=== PATIENT | female | born 1955 ===

== ENCOUNTER 2021-09-04 16:27 | Emergency (ER) | payer SELFPAY ==
[~2021-09-04] VITALS: Ht 152 cm; Wt 63.0 kg
[2021-09-04] MEDS ORDERED: NS IV 1000 ML 1,000 ML IV SCH ×2 (17:15→17:30)
[2021-09-04] MEDS ORDERED: CEFEPIME INJECTION 1,000 MG in NS (IVPB) 50 ML IV ONE (17:15)
[2021-09-04] MEDS ORDERED: NS IV 1000 ML 2,000 ML ONE (17:17)
[2021-09-04 17:31] LABS: BASOPHILS # (AUTO) 0.1 10^3/uL (0.0-0.1); BASOPHILS % (AUTO) 0 % (0-10); EOSINOPHILS # (AUTO) 0.1 10^3/uL (0.0-0.3); EOSINOPHILS % (AUTO) 0 % (0-10); HEMATOCRIT 43 % (35-52); HEMOGLOBIN 14.1 g/dL (11.5-16.0); LYMPHOCYTES # (AUTO) 0.9 10^3/uL (1.0-4.0); LYMPHOCYTES % (AUTO) 3 % (12-44); MEAN CORPUSCULAR HEMOGLOBIN 30 pg (25-34); MEAN CORPUSCULAR HGB CONC 33 g/dL (32-36); MEAN CORPUSCULAR VOLUME 90 fL (80-99); MONOCYTES # (AUTO) 0.8 10^3/uL (0.0-1.0); MONOCYTES % (AUTO) 3 % (0-12); NEUTROPHILS # (AUTO) 23.1 10^3/uL (1.8-7.8); NEUTROPHILS % (AUTO) 86 % (42-75); PLATELET COUNT 153 10^3/uL (130-400)
[2021-09-04] MEDS: VANCOMYCIN INJECTION 750 MG in NS (IVPB) 250 ML IV SCH ×2 (17:33→18:29)
[2021-09-04 17:34] LABS: POTASSIUM 4.4 MMOL/L (3.6-5.0)
[2021-09-04 17:35] LABS: CALCIUM 8.2 MG/DL (8.5-10.1)
[2021-09-04 17:36] LABS: CLARITY,URINE CLOUDY; COLOR,URINE BROWN; GLUCOSE, URINE (UA) 3+ (NEGATIVE); KETONES,URINE TRACE (NEGATIVE); LEUKOCYTE ESTERASE ,URINE 2+ (NEGATIVE); NITRITE,URINE POSITIVE (NEGATIVE); PH,URINE 5.5 (5-9); PROTEIN,URINE 2+ (NEGATIVE)
[2021-09-04 17:36] LABS: TOTAL PROTEIN 6.1 GM/DL (6.4-8.2)
[2021-09-04 17:38] LABS: BILIRUBIN,TOTAL 0.7 MG/DL (0.1-1.0)
[2021-09-04 17:40] LABS: CREATININE SERUM 2.95 MG/DL (0.60-1.30)
[2021-09-04] MEDS ORDERED: fentaNYL INJ 100 MCG/2 ML AMP ONE ×2 (17:43→18:19)
[2021-09-04 17:47] LABS: INR 1.3 (0.8-1.4); PROTHROMBIN TIME PATIENT 16.8 SEC (12.2-14.7)
[2021-09-04] MEDS ORDERED: ASPIRIN 81 MG CHEW (CHILDREN'S ASA) ONE (17:47)
[2021-09-04] MEDS ORDERED: NS IV 1000 ML 1,000 ML IV STA (17:47)
[2021-09-04 17:57] LABS: BAND NEUTROPHILS 21 %; BASOPHILS % (MANUAL) 0 %; EOSINOPHILS % (MANUAL) 0 %; LYMPHOCYTES % (MANUAL) 3 %; METAMYELOCYTES % 10 %; MONOCYTES % (MANUAL) 5 %; NEUTROPHILS % (MANUAL) 61 %; RBC MORPH NORMAL
[2021-09-04 17:59] LABS: BILIRUBIN,URINE 1+ (NEGATIVE)
[2021-09-04] MEDS ORDERED: ASPIRIN 81 MG CHEW (CHILDREN'S ASA) PO ONE (18:00)
[2021-09-04] MEDS ORDERED: fentaNYL INJ 100 MCG/2 ML AMP IVP ONE ×2 (18:00→18:30)
[2021-09-04 18:01] LABS: AMORPHOUS SEDIMENT,UR LARGE AMOR URATES /LPF; BACTERIA,URINE LARGE /HPF; RBC,URINE 25-50 /HPF; WBC,URINE 50-100 /HPF
--- NOTE | 2021-09-04 18:08 | Diagnostic Imaging Report ---
INDICATION: Shortness of air. COMPARISON: None available. TECHNIQUE: Single radiograph of the chest dated September 04, 2021. FINDINGS: The cardiac silhouette is mildly enlarged. Central pulmonary vascular congestion is present. Minimal prominence of the pulmonary interstitium is noted. No additional focal pulmonary opacity. No large-volume pleural effusion. No pneumothorax. No acute osseous abnormality. Surgical clips in the right upper quadrant of the abdomen. IMPRESSION: 1. Mild cardiomegaly with central pulmonary vascular congestion present. 2. Low lung volumes with prominence of the pulmonary interstitium which may relate to minimal interstitial edema or less likely interstitial infiltrate. No significant pleural effusion. Dictated by: Dictated on workstation # [id number]
--- NOTE | 2021-09-04 18:11 | Diagnostic Imaging Report ---
PROCEDURE: CT abdomen and pelvis without contrast. TECHNIQUE: Multiple contiguous axial images were obtained through the abdomen and pelvis without the use of intravenous contrast. Auto Exposure Controls were utilized during the CT exam to meet ALARA standards for radiation dose reduction. INDICATION: Vomiting. Right-sided abdominal pain. COMPARISON: None. FINDINGS: The heart is unremarkable. Intralobular septal thickening is noted in the included lung bases. There is hepatic steatosis. The gallbladder is surgically absent. A Archibald catheter is in place with a decompressed urinary bladder. Air is seen within the urinary bladder and within the right collecting system. Mild perinephric fat stranding is seen, bilaterally. No obstructing calculi or hydronephrosis. The spleen, pancreas and adrenal glands have a normal appearance. There is no pathologically enlarged mesenteric or retroperitoneal adenopathy. The bowel loops are nondilated. Diverticula are seen in the descending and sigmoid colon. There is no free fluid or free air. No acute osseous abnormality. There is no free air, loculated collection or adenopathy in the pelvis. IMPRESSION: 1. Air within the collecting system on the right. This may have been introduced from the Archibald catheter although emphysematous pyelonephritis or emphysematous pyelitis could also have this appearance. Recommend correlation with patient history and symptoms and follow-up as indicated. 2. Hepatic steatosis. 3. Diverticula in the descending and sigmoid colon without evidence of acute diverticulitis. 4. Intralobular septal thickening in the lung bases. This can be seen with edema, infection and/or chronic fibrotic changes. Dictated by: Dictated on workstation # [id number]
--- NOTE | 2021-09-04 18:14 | ED Abdominal Pain ---
General Chief Complaint: General Problems/Pain Stated Complaint: WEAKNESS/LETHARGIC Nursing Triage Note: c\\o being sick for 3 days, started having vomiting and right sided abdominal pain. patient family state she has been lethargic at home and not wanting to talk. patient answers all questions via macedonian interperter and appears to be alert and oriented x3. Source of Information: Patient, Family, Other Exam Limitations: Language Barrier (BABAK MEJIA) History of Present Illness Date Seen by Provider: Sep 04, 2021 Time Seen by Provider: 16:40 Initial Comments Patient to the ER by private conveyance with her granddaughter who speaks Chinese and her significant other. She and her significant other do not speak Chinese. Language tablet was used. She has a chief complaint of 3 days of right upper quadrant abdominal pain that is severe difficulty breathing feeling short of breath and occasional cough sometimes productive of white phlegm. She has not had a fever but she has had chills. She has a history of diabetes on metformin but not insulin. She is known to [facility] and was transferred here from there by private vehicle. She is not having any nausea or vomiting ri ght now. She has a history of kidney stones. Patient has no history of heart disease. Started having complaints of chest pain substernal about an hour after getting here. Family remarks that she was very difficult to get up out of bed and was weight and they had to lift her and carry her to the clinic. No known history of DKA. (BABAK MEJIA) Allergies and Home Medications Allergies Coded Allergies: No Known Drug Allergies (Unverified , 09/04/21) Patient Home Medication List Home Medication List Reviewed: Yes (BABAK MEJIA) Review of Systems Review of Systems Constitutional: chills; No fever EENTM: No Blurred Vision, No Double Vision Respiratory: Cough, Shortness of Air Cardiovascular: Chest Pain; Denies Lightheadedness Gastrointestinal: See HPI, Abdomen Distended, Abdominal Pain; Denies Constipated, Denies Diarrhea Genitourinary: Denies Burning, Denies Discharge Musculoskeletal: No back pain, No joint pain (BABAK MEJIA) All Other Systems Reviewed Negative Unless Noted: Yes (BABAK MEJIA) Past Fekleix-Rfwoht-Kdlvnd Hx Patient Social History Tobacco Use?: No Use of E-Cig and/or Vaping dev: No Substance use?: No (BABAK MEJIA) Physical Exam Vital Signs Vital Signs - First Documented 09/04/21 16:36 Temp 37.8 Pulse 97 Resp 20 B/P (MAP) 80/49 (59) Pulse Ox 95 O2 Delivery Room Air O2 Flow Rate 3.00 (DARLINE MOON DO) Vital Signs Capillary Refill : Less Than 3 Seconds (BABAK MEJIA) Height/Weight/BMI Height: '" Weight: lbs. oz. kg; 27.00 BMI Method: General Appearance: severe distress, obese HEENT: PERRL/EOMI, pharynx normal Neck: full range of motion, supple, normal inspection Respiratory: lungs clear, normal breath sounds, no respiratory distress, no accessory muscle use Cardiovascular: normal peripheral pulses, regular rate, rhythm Peripheral Pulses: 2+ Radial Pulses (R), 2+ Radial Pulses (L) Gastrointestinal: abnormal bowel sounds (Absent), distended, tenderness (Especially in the right upper quadrant without Dean sign) Extremities: normal range of motion, normal inspection, normal capillary refill Neurologic/Psychiatric: alert, oriented x 3, other (Anxious affect) Skin: normal color, warm/dry (BABAK MEJIA) Focused Exam Sepsis Stage: Septic Shock Possible Source: Genitouriary (BABAK MEJIA) Lactate Level 09/04/21 19:00: Lactic Acid Level 6.31*H 09/04/21 21:15: Lactic Acid Level 3.73*H 09/04/21 23:09: Lactic Acid Level 4.29*H (DARLINE MOON DO) Time of Focused Exam: 20:17 Respiratory: Crackles, Decreased Breath Sounds, Respiratory Distress (on 8l Oximask) Cardiovascular: Regular Rate, Rhythm, No Edema, Normal Peripheral Pulses Capillary Refill: Less Than 3 Seconds Peripheral Pulses: 2+ Radial Pulses (R), 2+ Radial Pulses (L) Skin: normal color, warm/dry (BABAK MEJIA) Lactic Acid Level Laboratory Tests Test 09/04/21 16:45 09/04/21 19:00 09/04/21 21:15 09/04/21 23:09 Lactic Acid Level 9.22 MMOL/L (0.50-2.00) *H 6.31 MMOL/L (0.50-2.00) *H 3.73 MMOL/L (0.50-2.00) *H 4.29 MMOL/L (0.50-2.00) *H (DARLINE MOON Bianca IRELAND) Within 3hrs of presentation: Admin fluids, Admin ABX, Blood cultures prior to ABX's, Focus exam, Lactate level (BABAK MEJIA) Procedures/Interventions Lumen: triple Central Line Procedure: betadine prep (Chlorhexidine prep), sterile drapes applied, sterile dressing applied Position: internal jugular (R) Anesthesia: Lidocaine Volume Anesthetic (ccs): 3 Complications: none Post Position: sutured, good blood return, position confirmed w/ CXR Risks, benefits and alternatives were discussed with the patient and the patient consented to the procedure. The patient was positioned in the usual format and using the usual sterile garments and drapes the patient was dressed out. The skin was thoroughly cleaned with the supplied chlorhexidine prep. After the prep had dried a sterile drape was placed. The 16 cm 7 Vietnamese triple-lumen catheter was flushed with sterile saline. We used ultrasound guidance to pass the introducer needle into the right internal jugular without difficulty. A guidewire was placed easily without difficulty. No ectopy was seen on the monitor. The supplied 11 blade scalpel was used to make a 2 mm incision at the inferior portion of the introducer needle. The introducer needle was replaced with the dilator. The dilator was taken out and the patient had the central lumen of the triple lumen catheter threaded over the guidewire and placed at 12.5 cm. The guidewire was removed and the triple-lumen catheter was stitched in place using the supplied braided stitch at 2 different points. The catheter withdrew blood and flushed easily. A sterile dressing was placed over the catheter. The patient tolerated the procedure well. A chest x-ray was obtained that demonstrated no pneumothorax and a new interval central catheter over the shadow of the right internal jugular down the superior vena cava and terminating just proximal to the right atria. (BABAK MEJIA) Progress/Results/Core Measures Results/Orders Lab Results Laboratory Tests Test 09/04/21 16:45 09/04/21 17:12 09/04/21 17:24 09/04/21 17:25 Range/Units White Blood Count 27.0 H 4.3-11.0 10^3/uL Red Blood Count 4.75 3.80-5.11 10^6/uL Hemoglobin 14.1 11.5-16.0 g/dL Hematocrit 43 35-52 % Mean Corpuscular Volume 90 80-99 fL Mean Corpuscular Hemoglobin 30 25-34 pg Mean Corpuscular Hemoglobin Concent 33 32-36 g/dL Red Cell Distribution Width 13.3 10.0-14.5 % Platelet Count 153 130-400 10^3/uL Mean Platelet Volume 12.0 9.0-12.2 fL Immature Granulocyte % (Auto) 7 % Neutrophils (%) (Auto) 86 H 42-75 % Lymphocytes (%) (Auto) 3 L 12-44 % Monocytes (%) (Auto) 3 0-12 % Eosinophils (%) (Auto) 0 0-10 % Basophils (%) (Auto) 0 0-10 % Neutrophils # (Auto) 23.1 H 1.8-7.8 10^3/uL Lymphocytes # (Auto) 0.9 L 1.0-4.0 10^3/uL Monocytes # (Auto) 0.8 0.0-1.0 10^3/uL Eosinophils # (Auto) 0.1 0.0-0.3 10^3/uL Basophils # (Auto) 0.1 0.0-0.1 10^3/uL Immature Granulocyte # (Auto) 1.9 H 0.0-0.1 10^3/uL Neutrophils % (Manual) 61 % Lymphocytes % (Manual) 3 % Monocytes % (Manual) 5 % Eosinophils % (Manual) 0 % Basophils % (Manual) 0 % Metamyelocytes % 10 % Band Neutrophils 21 % Blood Morphology Comment NORMAL Prothrombin Time 16.8 H 12.2-14.7 SEC INR Comment 1.3 0.8-1.4 Activated Partial Thromboplast Time 41 H 24-35 SEC Sodium Level 134 L 135-145 MMOL/L Potassium Level 4.4 3.6-5.0 MMOL/L Chloride Level 98 98-107 MMOL/L Carbon Dioxide Level 14 L 21-32 MMOL/L Anion Gap 22 H 5-14 MMOL/L Blood Urea Nitrogen 38 H 7-18 MG/DL Creatinine 2.95 H 0.60-1.30 MG/DL Estimat Glomerular Filtration Rate 17 BUN/Creatinine Ratio 13 Glucose Level 246 H 70-105 MG/DL Lactic Acid Level 9.22 *H 0.50-2.00 MMOL/L Calcium Level 8.2 L 8.5-10.1 MG/DL Corrected Calcium 9.0 8.5-10.1 MG/DL Total Bilirubin 0.7 0.1-1.0 MG/DL Aspartate Amino Transf (AST/SGOT) 66 H 5-34 U/L Alanine Aminotransferase (ALT/SGPT) 88 H 0-55 U/L Alkaline Phosphatase 147 H 40-136 U/L Total Protein 6.1 L 6.4-8.2 GM/DL Albumin 3.0 L 3.2-4.5 GM/DL Troponin I 0.131 H <0.028 NG/ML B-Type Natriuretic Peptide 931.7 H <100.0 PG/ML Beta-Hydroxybutyrate (Chem panel) 0.32 H 0.00-0.27 MMOL/L Glucometer 232 H 70-110 MG/DL Urine Color BROWN H Urine Clarity CLOUDY Urine pH 5.5 5-9 Urine Specific Kirksey 1.010 L 1.016-1.022 Urine Protein 2+ H NEGATIVE Urine Glucose (UA) 3+ H NEGATIVE Urine Ketones TRACE H NEGATIVE Urine Nitrite POSITIVE H NEGATIVE Urine Bilirubin 1+ H NEGATIVE Urine Urobilinogen 0.2 < = 1.0 MG/DL Urine Leukocyte Esterase 2+ H NEGATIVE Urine RBC (Auto) 3+ H NEGATIVE Urine RBC 25-50 H /HPF Urine WBC 50-100 H /HPF Urine Squamous Epithelial Cells NONE /HPF Urine Crystals NONE /LPF Urine Amorphous Sediment LARGE JACQUELIN URATES H /LPF Urine Bacteria LARGE H /HPF Urine Casts NONE /LPF Urine Mucus NEGATIVE /LPF Urine Culture Indicated CULTURE PENDING Test 09/04/21 19:00 09/04/21 20:25 09/04/21 21:15 09/04/21 23:09 Range/Units Lactic Acid Level 6.31 *H 3.73 *H 4.29 *H 0.50-2.00 MMOL/L Blood Gas Puncture Site LEFT RADIAL Blood Gas Patient Temperature 38 Arterial Blood pH 7.21 *L 7.37-7.43 Arterial Blood Partial Pressure CO2 45 35-45 MMHG Arterial Blood Partial Pressure O2 90 79-93 MMHG Arterial Blood HCO3 17 *L 23-27 MMOL/L Arterial Blood Total CO2 18.6 L 21.0-31.0 MMOL/L Arterial Blood Oxygen Saturation 94 94-100 % Arterial Blood Base Excess -8.9 L -2.5-2.5 MMOL/L Heriberto Test POSITIVE Blood Gas Ventilator Setting NO Blood Gas Inspired Oxygen 12 (DARLINE MOON DO) My Orders Orders - DARLINE MOON DO Furosemide Injection (Lasix Injection) (09/04/21 20:30) Methylprednisolone Sod Succ (Solu-Medrol (09/04/21 20:30) Albuterol/Ipra Inhalation Soln (Duoneb I (09/04/21 20:30) Dexamethasone Injection (Decadron Injec (09/04/21 20:30) Rt Request For Service (09/04/21 20:21) Svn Small Volume Nebulizer (09/04/21 20:21) Arterial Blood Gas (09/04/21 20:25) Sodium Bicarbonate 8.4% Syr (Sodium Bica (09/04/21 21:45) Cefepime Injection (Maxipime Injection) (09/05/21 00:00) (DARLINE MOON DO) Medications Given in ED Current Medications Medications Dose Ordered Sig/Michelle Route Start Time Stop Time Status Last Admin Dose Admin Aspirin 324 mg ONCE ONCE PO 09/04/21 18:00 09/04/21 18:01 DC 09/04/21 17:47 324 MG Cefepime HCl 1000 mg/Sodium Chloride 50 ml @ 100 mls/hr ONCE ONCE IV 09/04/21 17:15 09/04/21 17:44 DC 09/04/21 17:32 100 MLS/HR Cefepime HCl 1000 mg/Sodium Chloride 50 ml @ 100 mls/hr ONCE ONCE IV 09/05/21 00:00 09/05/21 00:29 DC 09/05/21 00:05 100 MLS/HR Fentanyl Citrate 25 mcg ONCE ONCE IVP 09/04/21 18:00 09/04/21 18:01 DC 09/04/21 17:45 25 MCG Fentanyl Citrate 50 mcg ONCE ONCE IVP 09/04/21 18:30 09/04/21 18:31 DC 09/04/21 18:25 50 MCG Furosemide 80 mg ONCE ONCE IVP 09/04/21 20:30 09/04/21 20:31 DC 09/04/21 20:31 80 MG Methylprednisolone Sodium Succinate 125 mg ONCE ONCE IVP 09/04/21 20:30 09/04/21 20:31 DC 09/04/21 20:31 125 MG Sodium Bicarbonate 100 meq ONCE ONCE IV 09/04/21 21:45 09/04/21 21:46 DC 09/04/21 21:59 100 MEQ Sodium Chloride 1,000 ml @ 250 mls/hr Q4H ONCE IV 09/04/21 19:00 09/04/21 22:59 DC 09/04/21 18:37 250 MLS/HR (LILYDARLINE Bianca IRELAND) Vital Signs/I&O 09/04/21 09/04/21 09/04/21 09/04/21 16:36 16:36 20:05 20:15 Temp 37.8 Pulse 97 112 93 Resp 20 B/P (MAP) 80/49 (59) 98/76 106/88 Pulse Ox 95 94 O2 Delivery Room Air Nasal Cannula O2 Flow Rate 3.00 09/04/21 09/05/21 20:19 00:13 Pulse 111 92 Resp 36 20 B/P (MAP) 105/64 119/89 Pulse Ox 90 98 O2 Delivery OxyMask Room Air O2 Flow Rate 10.00 09/04/21 23:59 Intake Total 3300 ml Balance 3300 ml (LUC MOONA Bianca DO) Blood Pressure Mean: 59 Progress Progress Note #1: Time: 18:13 Progress Note The patient is writhing and in severe pain. She is however presenting with a very low blood pressure of 60/40 so we initiated 2 L of fluid. 1/3 L was added but her blood pressure had returned to 100 systolic by that time. Broad- spectrum antibiotics and a CT without IV contrast of the abdomen pelvis were ordered and obtained demonstrating air in the urinary tract on the right side concerning for entericvesicular fistula versus infection. Urinalysis was consistent with significant infection. Blood cultures and lactate were obtained. Patient's blood pressure is presently 115/68 working on her third liter of fluids. We were able to give her 25 mcg of fentanyl for pain and will readdress her pain shortly. We do not have urology available right now. Will wait for radiology to review the imaging and then review with our local general surgeon. ASa Progress Note #2: Time: 20:18 Progress Note Suspect the patient was gotten too many IV fluids and is perhaps going into fluid overload. She has some congestion seen on chest x-ray after central catheter. Plan to hold her IV fluids and entertain Lasix and/or CPAP while using pressors to maintain a good blood pressure. Patient states her pain is tolerable just short of breath (BABAK MEJIA) Progress Note : Progress Note 1999--ASSUMED CARE OF PT FROM DR. MEJIA AT SHIFT CHANGE. HAVE RECEIVED BED ASSIGNMENT FROM . ATTEMPTING TO ARRANGE FOR GROUND TRANSPORT NO AIR SERV ICES ARE AVAILABLE DUE TO WEATHER. VITALS ARE STABLE AT THIS TIME. PT IS CURRENTLY ON LEVOPHED DRIP FOR PERSISTENT HYPOTENSION. PT RECEIVING IV ANTIBIOTICS. 2024--PT IS WHEEZING AND HAS A LITTLE ORTHOPNEA, O2 SATS 90%. PLACED ON OXIMASK AND O2 SATS UP TO MID 90'S RT FOR NEB TREATMENT AND ABG'S GIVEN LASIX DUE TO EVIDENCE OF CHF ON XRAY, ALSO GAVE SOLU-MEDROL. IV FLUIDS SLOWED AND LEVOPHED INCREASED DUE TO BP IN LOW 90'S SYSTOLIC. SYMPTOMS OVER ALL IMPROVED WITH THE ABOVE MEASURES 2099--RN HAS BEEN ON PHONE WITH LOCAL EMS AGAIN. THEY WILL NOT HAVE A CREW AVAILABLE UNTIL MIDNIGHT AND THEY REQUESTED THAT WE CALL BACK AT THAT TIME. 2199--PT REMAINS STABLE. O2 SATS IN MID 90'S ON OXIMASK, LUNGS WITH IMPROVED AERATION, AND NO LONGER WHEEZING OR ORTHOPNEIC. BP STABLE IN UPPER 90'S TO 100 SYSTOLIC. PT HAS RECEIVED A TOTAL OF 4 LITERS OF FLUID AND HAS HAD 700 CC URINE OUT. URINE IS GETTING CLEARER/PALER AT THIS TIME PT DOES NOT HAVE ANY COMPLAINTS AT THIS TIME. 0001--PT REMAINS STABLE, HR DOWN TO 90'S, BP UP TO 110'S SYSTOLIC, O2 SATS 95- 96% ON OXIMASK. RESPIRATIONS EVEN AND UNLABORED. URINE OUTPUT NOW AT APPROXIMATELY 1000 ML. STILL WAITING FOR TRANSPORTATION 5--RN IS ON PHONE WITH [facility], THEY WILL BE SENDING A TRANSFER CREW OUT SHORTLY. 005--EMS HERE FOR TRANSPORT. BP 121/77, HR 89, O2 SAT 96% ON 10 L OXIMASK. (DARLINE MOON DO) Initial ECG Impression Date: Sep 04, 2021 Initial ECG Impression Time: 17:43 Initial ECG Rate: 106 Initial ECG Rhythm: S.Tach Initial ECG Intervals: Normal Initial ECG Impression: Normal Comment Sinus tachycardia without clinically relevant ST elevation or depression. (BABAK MEJIA) Diagnostic Imaging Diagonstic Imaging: Xray Plain Films/CT/US/NM/MRI: chest Comments [facility] [place] NAME: JOSE MARTIN SMITH [facility] REC#: [id number] PT STATUS: REG ER : 1955 PHYSICIAN: BABAK MEJIA MD ADMIT DATE: 09/04/21/ER Signed Date of Exam:09/04/21 CHEST 1 VIEW, AP/PA ONLY INDICATION: Shortness of air. COMPARISON: None available. TECHNIQUE: Single radiograph of the chest dated September 04, 2021. FINDINGS: The cardiac silhouette is mildly enlarged. Central pulmonary vascular congestion is present. Minimal prominence of the pulmonary interstitium is noted. No additional focal pulmonary opacity. No large-volume pleural effusion. No pneumothorax. No acute osseous abnormality. Surgical clips in the right upper quadrant of the abdomen. IMPRESSION: 1. Mild cardiomegaly with central pulmonary vascular congestion present. 2. Low lung volumes with prominence of the pulmonary interstitium which may relate to minimal interstitial edema or less likely interstitial infiltrate. No significant pleural effusion. Dictated by: Dictated on workstation # [id number] Dict: 09/04/211802 Trans: 09/04/211811 [facility] [id number] Interpreted by: JOCELYNN MCKEON MD Electronically signed by: JOCELYNN MCKEON MD 09/04/211811 Reviewed: Reviewed by Il Diagonstic Imaging: CT Plain Films/CT/US/NM/MRI: abdomen, pelvis Comments [facility] [place] NAME: JOSE MARTIN SMITH [facility] REC#: [id number] PT STATUS: REG ER : 1955 PHYSICIAN: BABAK MEJIA MD ADMIT DATE: 09/04/21/ER Signed Date of Exam:09/04/21 CT ABDOMEN/PELVIS WO PROCEDURE: CT abdomen and pelvis without contrast. TECHNIQUE: Multiple contiguous axial images were obtained through the abdomen and pelvis without the use of intravenous contrast. Auto Exposure Controls were utilized during the CT exam to meet ALARA standards for radiation dose reduction. INDICATION: Vomiting. Right-sided abdominal pain. COMPARISON: None. FINDINGS: The heart is unremarkable. Intralobular septal thickening is noted in the included lung bases. There is hepatic steatosis. The gallbladder is surgically absent. A Archibald catheter is in place with a decompressed urinary bladder. Air is seen within the urinary bladder and within the right collecting system. Mild perinephric fat stranding is seen, bilaterally. No obstructing calculi or hydronephrosis. The spleen, pancreas and adrenal glands have a normal appearance. There is no pathologically enlarged mesenteric or retroperitoneal adenopathy. The bowel loops are nondilated. Diverticula are seen in the descending and sigmoid colon. There is no free fluid or free air. No acute osseous abnormality. There is no free air, loculated collection or adenopathy in the pelvis. IMPRESSION: 1. Air within the collecting system on the right. This may have been introduced from the Archibald catheter although emphysematous pyelonephritis or emphysematous pyelitis could also have this appearance. Recommend correlation with patient history and symptoms and follow-up as indicated. 2. Hepatic steatosis. 3. Diverticula in the descending and sigmoid colon without evidence of acute diverticulitis. 4. Intralobular septal thickening in the lung bases. This can be seen with edema, infection and/or chronic fibrotic changes. Dictated by: Dictated on workstation # [id number] Dict: 09/04/21 1800 Trans: 09/04/211810 [facility] [id number] Interpreted by: MARÍA ELENA FLETCHER DO Electronically signed by: MARÍA EELNA FLETCHER DO 09/04/211810 Reviewed: Reviewed by Il Diagonstic Imaging: Xray Plain Films/CT/US/NM/MRI: chest Comments No evidence of pneumothorax. Central line and overlying the shadow of the superior vena cava and terminating just above the right atria. [facility] [place] NAME: JOSE MARTIN SMITH [facility] REC#: [id number] PT STATUS: REG ER : 1955 PHYSICIAN: BABAK MEJIA MD ADMIT DATE: 09/04/21/ER Signed Date of Exam:09/04/21 CHEST 1 VIEW, AP/PA ONLY INDICATION: Post central line placement. COMPARISON: 09/04/2021 TECHNIQUE: Single radiograph of the chest dated September 04, 2021 at 1950 hours. FINDINGS: Interval placement of a right IJ central venous catheter with the distal tip overlying the expected location of the cavoatrial junction. No pneumothorax. Cardiac silhouette remains enlarged. Central pulmonary vascular congestion. Prominence of the pulmonary interstitium. No large-volume pleural effusion. No pneumothorax. Osseous structures appear stable. IMPRESSION: 1. Interval placement of right IJ central venous catheter with the distal tip overlying the expected location of the cavoatrial junction without pneumothorax. 2. Persistent cardiomegaly and central pulmonary vascular congestion. 3. Stable prominence of the pulmonary interstitium, related to interstitial edema versus interstitial infiltrate. Dictated by: Dictated on workstation # [id number] Dict: 09/04/211956 Trans: 09/04/212008 [facility] [id number] Interpreted by: JOCELYNN MCKEON MD Electronically signed by: JOCELYNN MCKEON MD 09/04/212008 Reviewed: Reviewed by Me (BABAK MEJIA) Consults : Consulting Physician: PATRICIA ZAVALETA DO Consults Notes Dr. Zavaleta, general surgery agrees with the radiologist read that a gas-forming bacteria is highly likely and ID and urology would be beneficial to this patient. We have neither are available at this time. Recommends transfer. (BABAK MEJIA) Transfer of Care Time: 20:20 Care transferred to: Dr. Moon (BABAK MEJIA) Critical Care Note Critical Care Start Time: 16:40 Stop Time: 20:00 Total Time (minutes) 200m Progress I attest to 200 minutes of critical care time outside of procedures to work on care of this critically ill patient, speak with general surgery, other ancillary services including respiratory therapy, care of the patient transferred. Also working on transfer to higher level of care and working with their intensivists to help manage the patient. (BAABK MEJIA) Departure Impression Primary Impression: Pyelonephritis Additional Impressions: Pneumatouria Septic shock Metabolic acidosis Disposition: 02 XFER SHT-TRM HOSP ([facility]) Condition: Stable Transfer Transfer Reason: Exceeds level of care (No urology or ID) Time Spoke to Accepting Phy: 19:00 Transfer Progress Notes 1820: Left voicemail with [facility]. 182: [facility] and [facility]: [facility] is over 48 hours out before they will have admissions available. [facility] is almost 24 hours before they will be able to accept admissions. 182: [facility]: Spoke with triage nursing and they will call us back with MICU drag out man. 1899: [facility] called us back and give us the accepting physician of Mavis Pollock. 2020: We have a bed number. All the fixed wing and rotary ambulances are unavailable to come until at least midnight due to weather. [facility] informs us that they are unavailable until after 1 AM. We have called all of the local surrounding EMS and they have declined transport. We have put the patient in a hospital bed in the ER for comfort and will continue to work on transport solution. Transfer Facility: [facility] Method of Transfer: EMS (BABAK MEJIA) Departure-Patient Inst. Referrals: [facility] (PCP/Family) Primary Care Physician BABAK MEJIA Sep 04, 2021 18:14 DARLINE MOON DO Sep 04, 2021 20:09
[2021-09-04] MEDS ORDERED: NS IV 1000 ML 1,000 ML ONE (18:37)
[2021-09-04] MEDS ORDERED: NOREPINEPHRINE 8 MG/250 ML 0 ML IV ONE (18:38)
[2021-09-04] MEDS ORDERED: NOREPINEPHRINE 8 MG/250 ML 250 ML IV ONE (18:43)
[2021-09-04] MEDS ORDERED: NS IV 1000 ML 1,000 ML IV ONE (19:00)
[2021-09-04] MEDS ORDERED: NOREPINEPHRINE 8 MG/250 ML 250 ML IV SCH (19:00)
--- NOTE | 2021-09-04 20:03 | Diagnostic Imaging Report ---
INDICATION: Post central line placement. COMPARISON: 09/04/2021 TECHNIQUE: Single radiograph of the chest dated September 04, 2021 at 1950 hours. FINDINGS: Interval placement of a right IJ central venous catheter with the distal tip overlying the expected location of the cavoatrial junction. No pneumothorax. Cardiac silhouette remains enlarged. Central pulmonary vascular congestion. Prominence of the pulmonary interstitium. No large-volume pleural effusion. No pneumothorax. Osseous structures appear stable. IMPRESSION: 1. Interval placement of right IJ central venous catheter with the distal tip overlying the expected location of the cavoatrial junction without pneumothorax. 2. Persistent cardiomegaly and central pulmonary vascular congestion. 3. Stable prominence of the pulmonary interstitium, related to interstitial edema versus interstitial infiltrate. Dictated by: Dictated on workstation # [id number]
[2021-09-04] MEDS ORDERED: FUROSEMIDE 40 MG/4 ML INJ (LASIX) IVP ONE (20:30)
[2021-09-04] MEDS ORDERED: RT-ALBUTEROL/IPRATROPIUM 3 ML (DUONEB) VIAL INH ONE (20:30)
[2021-09-04] MEDS ORDERED: methylPREDNISolone 125 MG (Solu-MEDROL) VIAL IVP ONE (20:30)
[2021-09-04 21:43] LABS: ABG BASE EXCESS -8.9 MMOL/L (-2.5-2.5); ABG OXYGEN SATURATION 94 % (94-100); ABG PCO2 45 MMHG (35-45); ABG PO2 90 MMHG (79-93); ABG TCO2 18.6 MMOL/L (21.0-31.0)
[2021-09-04 21:44] LABS: ABG PH 7.21 (7.37-7.43); ALLENS TEST POSITIVE; INSPIRED O2 12; PATIENT TEMP 38; VENTILATOR NO
[2021-09-04] MEDS ORDERED: SODIUM BICARB 8.4% 50 MEQ/50 ML (ABBOTT) SYR IV ONE (21:45)
[2021-09-05] MEDS ORDERED: CEFEPIME INJECTION 1,000 MG in NS (IVPB) 50 ML IV ONE ×2
[2021-09-05 01:00] VITALS: BP 129/91
== END 2021-09-05 01:22 | disposition short-term general hospital (02) ==
LOC: EDUNIT# 16:27 → ER 16:29
DX: N12 Tubulo-interstitial nephritis, not specified as acute or chronic (principal); E87.2 Acidosis; R39.89 Other symptoms and signs involving the genitourinary system; R65.21 Severe sepsis with septic shock; E66.9 Obesity, unspecified; Z68.27 Body mass index [BMI] 27.0-27.9, adult
CPT/HCPCS: 36415; 51702; 71045; 74176; 80053; 81000; 82010; 82805; 82947; 83605; 83880; 84484; 85007; 85027; 85610; 85730; 87040; 87077; 87088; 93005

== ENCOUNTER → 2021-11-25 | Outpatient (CLI) | payer OTHER ==
--- NOTE | 2021-11-25 16:14 | Diagnostic Imaging Report ---
PROCEDURE: MR imaging of the brain without contrast. TECHNIQUE: Multiplanar, multisequence MR imaging of the brain was performed without contrast. INDICATION: Right-sided facial weakness. COMPARISON: None. FINDINGS: Mild generalized volume loss. Mild nonspecific T2 hyperintensities in the supratentorial white matter. No restricted water diffusion. No hemosiderin deposition or evidence of intracranial hemorrhage. Normal morphology including the major midline structures, sella, posterior fossa and cerebellar pontine angle. Normal intracranial flow voids. No hydrocephalus or extra-axial fluid collections. The orbits are negative. Paranasal sinuses and mastoids are clear. Normal bone marrow signal. IMPRESSION: Age-appropriate MRI of the brain without contrast. No acute intracranial MRI findings. No evidence of a infarction or hemorrhage. Dictated by: Dictated on workstation # [id number]
== END ==
LOC: RAD 14:00
PROVIDERS: ATTEND Family Medicine
DX: R29.810 Facial weakness (principal)
CPT/HCPCS: 70551

== ENCOUNTER → 2022-02-10 | Outpatient (CLI) | payer OTHER | LOC: CARD 07:59 | PROVIDERS: ATTEND Family Medicine | DX: R07.89 Other chest pain (principal) | CPT/HCPCS: 93306 ==

== ENCOUNTER → 2022-02-22 | Outpatient (CLI) | payer OTHER ==
[~2022-02-22] MED LIST: REGADENOSON 0.4 MG/5 ML SYR (LEXISCAN) IV ONE
[2022-02-22] MEDS: CATHETER FLUSH 10 ML SYR IVP PRN ×2 (08:16→09:59)
[2022-02-22 09:58] VITALS: BP 186/101
--- NOTE | 2022-02-22 12:19 | Cardiology Stress Test Report ---
Stress Test Report Date of Procedure/Referring: Date of Procedure: Feb 22, 2022 [facility] Admitting Physician Admitting Physician: Attending Physician: Brittani Thomas MD Baseline Heart Rate: 74 Baseline Blood Pressure: Blood Pressure Systolic: 186 Blood Pressure Diastolic: 101 Baseline Vitals Vital Signs Date Time Temp Pulse Resp B/P (MAP) Pulse Ox O2 Delivery O2 Flow Rate FiO2 02/22/22 09:58 90 16 186/101 (129) 95 Room Air Baseline EKG: Baseline EKG: NSR Summary After explaining the procedure to the patient, she signed a consent and then brought to the stress nuclear laboratory. Patient received 0.4 mg Lexiscan for stress test, ECG, heart rate and blood pressure were monitored continuously. Resting and stress dose of radio tracer were injected, imaging was acquired and reviewed in short axis, horizontal long axis and vertical long axis views. TID: 0.88 SSS: 8 SDS: 8 EF: 94 And 31. Patient tolerated Lexiscan well 2. Extracardiac attenuation affecting the quality of the images, small ventricle with no significant ischemia or infarction noted on SPECT images. 3. Stress score is elevated due to the small left ventricle and extracardiac attenuation 4. Small left ventricular size with normal contractility, ejection fraction 94%, probably overestimated due to the small left ventricle Copy Copies To 1: [facility] [place] SHARON CELAYA MD Feb 22, 2022 12:19
== END ==
LOC: CARD 07:55
PROVIDERS: ATTEND Family Medicine
DX: R07.89 Other chest pain (principal)
CPT/HCPCS: 78452; 93017; A9502

== ENCOUNTER 2022-06-27 10:34 | Emergency (ER) | payer OTHER ==
[~2022-06-27] VITALS: Ht 140 cm; Wt 61.2 kg
[2022-06-27] MEDS ORDERED: ONDANSETRON 4 MG/2 ML (SDV) Z0FRAN IVP ONE (11:30)
[2022-06-27] MEDS ORDERED: KETOROLAC 15 MG/ML VIAL IVP ONE (11:30)
[2022-06-27] MEDS ORDERED: NS IV 1000 ML 1,000 ML IV SCH (11:30)
--- NOTE | 2022-06-27 11:30 | ED Abdominal Pain ---
General Chief Complaint: Abdominal/GI Problems Stated Complaint: RT SIDE PAIN Source of Information: Patient Exam Limitations: Language Barrier (SHELLIE GRIGSBY APRN) History of Present Illness Date Seen by Provider: Jun 27, 2022 Time Seen by Provider: 11:11 Initial Comments 67-year-old speaking female presents to the ED with complaints of right upper quadrant abdominal pain for the last 1 to 2 weeks. Patient was seen at the [facility] clinic today and they sent her here. She describes the pain as a burning sensation. Reports the pain is in the right upper quadrant and radiates to the right flank area. She reports the pain is constant. She has had her gallbladder removed. Reports history of kidney stones, states this almost feels like a kidney stone, but not quite the same. She reports nausea. Denies fevers, chest pain, shortness of air, vomiting, dysuria, hematuria. Last normal bowel movement was the day before yesterday, states she had a small bowel movement today. Blood pressure was found to be high, denies history of hypertension. Denies headache, dizziness. Reports blurred vision, states this occurs when her blood sugar is high. Past medical history includes diabetes. (SHELLIE GRIGSBY APRN) Allergies and Home Medications Allergies Coded Allergies: No Known Drug Allergies (Unverified , 09/04/21) Patient Home Medication List Home Medication List Reviewed: Yes (SHELLIE GRIGSBY APRN) Metoclopramide HCl (Reglan) 5 Mg Tablet, 5 MG PO Q6H Prescribed by: Shellie Grigsby on 06/27/22 1441 Tramadol HCl (Tramadol HCl) 50 Mg Tablet, 50 MG PO Q4H PRN for PAIN Prescribed by: Shellie Grigsby on 06/27/22 1337 Review of Systems Review of Systems Constitutional: see HPI (SHELLIE GRIGSBY APRN) Past Ggyizud-Szjkra-Pztfhg Hx Immunizations Up To Date First/Initial COVID19 Vaccinat: 2020 Second COVID19 Vaccination Shree: 2020 (SHELLIE GRIGSBY APRN) Physical Exam Vital Signs Vital Signs - First Documented 06/27/22 11:10 Temp 36.0 Pulse 78 Resp 16 B/P (MAP) 177/108 (131) Pulse Ox 95 (KATHRYN PARRISH MD) Vital Signs Capillary Refill : (SHELLIE GRIGSBY APRN) Height/Weight/BMI Height: '" Weight: lbs. oz. kg; 27.00 BMI Method: General Appearance: WD/WN, no apparent distress Neck: supple, normal inspection Respiratory: lungs clear, normal breath sounds, no respiratory distress, no accessory muscle use Cardiovascular: regular rate, rhythm, no edema, no gallop, no JVD, no murmur Gastrointestinal: normal bowel sounds, soft, tenderness (Right upper quadrant tenderness) Extremities: normal range of motion, normal inspection Back: CVA tenderness (R); No CVA tenderness (L) Neurologic/Psychiatric: alert, normal mood/affect Skin: normal color, warm/dry (SHELLIE GRIGSBY APRN) Progress/Results/Core Measures Results/Orders Lab Results Laboratory Tests Test 06/27/22 11:08 06/27/22 11:35 06/27/22 13:14 Range/Units White Blood Count 9.2 4.3-11.0 10^3/uL Red Blood Count 4.33 3.80-5.11 10^6/uL Hemoglobin 12.7 11.5-16.0 g/dL Hematocrit 38 35-52 % Mean Corpuscular Volume 89 80-99 fL Mean Corpuscular Hemoglobin 29 25-34 pg Mean Corpuscular Hemoglobin Concent 33 32-36 g/dL Red Cell Distribution Width 12.9 10.0-14.5 % Platelet Count 236 130-400 10^3/uL Mean Platelet Volume 11.0 9.0-12.2 fL Immature Granulocyte % (Auto) 1 % Neutrophils (%) (Auto) 64 42-75 % Lymphocytes (%) (Auto) 26 12-44 % Monocytes (%) (Auto) 7 0-12 % Eosinophils (%) (Auto) 2 0-10 % Basophils (%) (Auto) 0 0-10 % Neutrophils # (Auto) 5.9 1.8-7.8 10^3/uL Lymphocytes # (Auto) 2.4 1.0-4.0 10^3/uL Monocytes # (Auto) 0.7 0.0-1.0 10^3/uL Eosinophils # (Auto) 0.1 0.0-0.3 10^3/uL Basophils # (Auto) 0.0 0.0-0.1 10^3/uL Immature Granulocyte # (Auto) 0.1 0.0-0.1 10^3/uL Sodium Level 135 135-145 MMOL/L Potassium Level 4.4 3.6-5.0 MMOL/L Chloride Level 102 98-107 MMOL/L Carbon Dioxide Level 22 21-32 MMOL/L Anion Gap 11 5-14 MMOL/L Blood Urea Nitrogen 21 H 7-18 MG/DL Creatinine 1.28 0.60-1.30 MG/DL Estimat Glomerular Filtration Rate 46 BUN/Creatinine Ratio 16 Glucose Level 391 H 70-105 MG/DL Calcium Level 8.7 8.5-10.1 MG/DL Corrected Calcium 9.1 8.5-10.1 MG/DL Total Bilirubin 0.4 0.1-1.0 MG/DL Aspartate Amino Transf (AST/SGOT) 9 5-34 U/L Alanine Aminotransferase (ALT/SGPT) 9 0-55 U/L Alkaline Phosphatase 92 40-136 U/L Troponin I < 0.028 <0.028 NG/ML Total Protein 6.0 L 6.4-8.2 GM/DL Albumin 3.5 3.2-4.5 GM/DL Amylase Level 129 H 25-125 U/L Lipase 56 8-78 U/L Urine Color YELLOW Urine Clarity CLEAR Urine pH 6.0 5-9 Urine Specific Wray <=1.005 1.016-1.022 Urine Protein 1+ H NEGATIVE Urine Glucose (UA) 3+ H NEGATIVE Urine Ketones NEGATIVE NEGATIVE Urine Nitrite NEGATIVE NEGATIVE Urine Bilirubin NEGATIVE NEGATIVE Urine Urobilinogen 0.2 < = 1.0 MG/DL Urine Leukocyte Esterase NEGATIVE NEGATIVE Urine RBC (Auto) TRACE-I H NEGATIVE Urine RBC 0-2 /HPF Urine WBC RARE /HPF Urine Squamous Epithelial Cells RARE /HPF Urine Crystals NONE /LPF Urine Bacteria TRACE /HPF Urine Casts NONE /LPF Urine Mucus NEGATIVE /LPF Urine Culture Indicated NO Glucometer 260 H 70-110 MG/DL (KATHRYN PARRISH MD) My Orders Orders - KATHRYN PARRISH MD Ua Culture If Indicated (06/27/22 10:38) (KATHRYN PARRISH MD) Vital Signs/I&O 06/27/22 06/27/22 11:10 14:55 Temp 36.0 36.0 Pulse 78 70 Resp 16 16 B/P (MAP) 177/108 (131) 182/120 Pulse Ox 95 95 4//23 00:00 Intake Total 1000 ml Balance 1000 ml (KATHRYN PARRISH MD) Progress Progress Note : Time: 11:30 Progress Note Patient seen and evaluated, resting comfortably in bed, no acute distress. Based on exam and symptoms, work-up initiated including CBC, CMP, amylase, lipase, UA, CT abdomen pelvis, Toradol, Zofran, IV fluids. [address] reviewed. CBC grossly negative. CMP shows slightly elevated BUN 21, creatinine 1.28, GFR 46. Glucose elevated 391, this improved after fluids down to 260. Amylase slightly elevated 129, lipase normal. Urinalysis shows trace RBCs and 3+ glucose. CT abdomen pelvis shows no acute abnormality. Blood sugar improved after IV fluids. Results discussed with patient and son. We will give 1 more dose of fentanyl prior to discharge and discharge with pain medications. I offered prescription for nausea medications, patient declined. Patient instructed to follow-up with primary care provider, son is going to walk across the street to [facility] to schedule a follow-up appointment. Patient instructed to be on a clear liquid diet for the next 24 hours, and to slowly increase diet as tolerated. Discharge instructions and return precautions provided. 1354 patient was going to be discharged, blood pressure increased again to over 200 systolic. Patient vomited after drinking water. Will obtain an EKG and troponin in case this is cardiac related. Reglan ordered. 1330 troponin negative. EKG appears similar to previous, except for new prolonged QT. Patient reevaluated, she states she feels much better. She reports that her blurry vision is improved now that her blood sugar has improved. Her blood pressure still elevated, but has improved. We will proceed with discharge at this time. Patient directed to follow-up with primary care provider. Will discharge with prescription for tramadol and Reglan. Discharge instructions and return precaution provided. (SHELLIE GRIGSBY APRN) Initial ECG Impression Date: Jun 27, 2022 Initial ECG Impression Time: 14:02 Initial ECG Rate: 73 Initial ECG Rhythm: Normal Sinus Initial ECG Intervals: QT (QTc prolonged 504) Initial ECG Impression: Nonspecific Changes Initial ECG Comparisson: Unchanged Comment Only changes prolonged QTc (SHELLIE GRIGSBY APRN) Departure Impression Primary Impression: Abdominal pain Qualified Codes: R10.31 - Right lower quadrant pain Additional Impressions: Elevated amylase Decreased renal function Hyperglycemia due to diabetes mellitus High blood pressure Qualified Codes: I10 - Essential (primary) hypertension Disposition: 01 HOME, SELF-CARE Condition: Stable Departure-Patient Inst. Decision time for Depature: 13:32 (SHELLIE GRIGSBY APRN) Referrals: [facility] (PCP/Family) Primary Care Physician Patient Instructions: CLEAR LIQUID DIET ADULT/CHILD, Severe Abdominal Pain, Adult (DC) Add. Discharge Instructions: You should consume a clear liquid diet for the next 24 hours, this includes water, broth, Jell-O, apple juice, etc. see discharge instructions for other examples. Follow-up with your primary care provider this week. Your blood pressure and blood sugar were found to be elevated. Return for severe pain, recurrent vomiting, fever, or any other new, concerning, or worsening symptoms. All discharge instructions reviewed with patient and/or family. Voiced understanding. Scripts Metoclopramide HCl (Reglan) 5 Mg Tablet 5 MG PO Q6H, #28 TAB 0 Refills Prov: SHELLIE GRIGSBY APRN 06/27/22 Tramadol HCl (Tramadol HCl) 50 Mg Tablet 50 MG PO Q4H PRN for PAIN, #20 TAB 0 Refills Prov: SHELLIE GRIGSBY APRN 06/27/22 ATTENDING PHYSICIAN NOTE: I was physically present as attending physician in the emergency department during the care of this patient, but I was not directly involved in the decision making or delivery of care for this patient. (KATHRYN PARRISH MD) SHELLIE GRIGSBY APRN Jun 27, 2022 11:30 KATHRYN PARRISH MD Jun 28, 2022 12:45
[2022-06-27 11:31] LABS: BASOPHILS % (AUTO) 0 % (0-10); EOSINOPHILS # (AUTO) 0.1 10^3/uL (0.0-0.3); EOSINOPHILS % (AUTO) 2 % (0-10); HEMATOCRIT 38 % (35-52); HEMOGLOBIN 12.7 g/dL (11.5-16.0); LYMPHOCYTES # (AUTO) 2.4 10^3/uL (1.0-4.0); LYMPHOCYTES % (AUTO) 26 % (12-44); MEAN CORPUSCULAR HEMOGLOBIN 29 pg (25-34); MEAN CORPUSCULAR HGB CONC 33 g/dL (32-36); MEAN CORPUSCULAR VOLUME 89 fL (80-99); MONOCYTES # (AUTO) 0.7 10^3/uL (0.0-1.0); MONOCYTES % (AUTO) 7 % (0-12); NEUTROPHILS # (AUTO) 5.9 10^3/uL (1.8-7.8); NEUTROPHILS % (AUTO) 64 % (42-75); PLATELET COUNT 236 10^3/uL (130-400); WHITE BLOOD COUNT 9.2 10^3/uL (4.3-11.0)
[2022-06-27 11:34] LABS: ALBUMIN 3.5 GM/DL (3.2-4.5)
[2022-06-27 11:35] LABS: POTASSIUM 4.4 MMOL/L (3.6-5.0)
[2022-06-27 11:36] LABS: CALCIUM 8.7 MG/DL (8.5-10.1)
[2022-06-27 11:39] LABS: BILIRUBIN,TOTAL 0.4 MG/DL (0.1-1.0)
[2022-06-27 11:41] LABS: CREATININE SERUM 1.28 MG/DL (0.60-1.30)
[2022-06-27 11:43] LABS: BILIRUBIN,URINE NEGATIVE (NEGATIVE); CLARITY,URINE CLEAR; COLOR,URINE YELLOW; GLUCOSE, URINE (UA) 3+ (NEGATIVE); KETONES,URINE NEGATIVE (NEGATIVE); LEUKOCYTE ESTERASE ,URINE NEGATIVE (NEGATIVE); NITRITE,URINE NEGATIVE (NEGATIVE); PROTEIN,URINE 1+ (NEGATIVE)
[2022-06-27] MEDS ORDERED: HOLD METFORMIN - RECEIVED CONTRAST 20 ML VIAL IV SCH (12:00)
[2022-06-27] MEDS ORDERED: NS 100 ML (IVPB) BAG IV ONE (12:00)
[2022-06-27] MEDS ORDERED: IOHEXOL 350 MG/ML 100 ML (OMNIPAQUE 350) VIAL IV ONE (12:00)
[2022-06-27 12:01] LABS: BACTERIA,URINE TRACE /HPF; RBC,URINE 0-2 /HPF; SQUAMOUS EPITHELIAL CELL,UR RARE /HPF; WBC,URINE RARE /HPF
--- NOTE | 2022-06-27 12:08 | Diagnostic Imaging Report ---
EXAMINATION: CT abdomen and pelvis with intravenous contrast. TECHNIQUE: Multiple contiguous axial images were obtained through the abdomen and pelvis after the uneventful administration of intravenous contrast. All CT scans use one or more of the following dose optimizing techniques: automated exposure control, MA and/or KvP adjustment based on patient size and exam type or iterative reconstruction. HISTORY: Right upper quadrant pain. COMPARISON: 09/04/2021. FINDINGS: Limited views of the lower thorax are unremarkable. The liver is normal without focal lesion. There is no biliary ductal dilation. Gallbladder is surgically absent. Pancreas is normal. Spleen is normal. Adrenal glands are normal. The kidneys are normal. There is no hydronephrosis. Urinary bladder is normal. Bowel is normal in caliber without obstruction or inflammation. The appendix is normal. No free fluid or air. No abdominal or pelvic lymphadenopathy. Aorta is normal in caliber without aneurysm. There are no suspicious osseous lesions. IMPRESSION: 1. No acute abnormality in the abdomen or pelvis. Dictated by: Dictated on workstation # [id number]
[2022-06-27] MEDS ORDERED: fentaNYL INJ 100 MCG/2 ML AMP IVP ONE ×2 (12:45→13:30)
[2022-06-27] MEDS ORDERED: TRM50T PO (13:36)
[2022-06-27] MEDS ORDERED: METOCLOPRAMIDE INJ 10 MG/2 ML (REGLAN) IVP ONE (14:00)
[2022-06-27] MEDS ORDERED: METO5TAB75 PO (14:41)
[2022-06-27 14:55] VITALS: BP 182/120
== END 2022-06-27 14:55 | disposition home or self-care (01) ==
LOC: EDUNIT# 10:34 → ER 10:37
DX: R10.11 Right upper quadrant pain (principal); E11.65 Type 2 diabetes mellitus with hyperglycemia; I10 Essential (primary) hypertension; R74.8 Abnormal levels of other serum enzymes; R94.4 Abnormal results of kidney function studies; Z90.49 Acquired absence of other specified parts of digestive tract; Z87.442 Personal history of urinary calculi
CPT/HCPCS: 36415; 74177; 80053; 81000; 82150; 82947; 83690; 84484; 85025; 93005

== ENCOUNTER 2022-08-25 14:09 | Observation (INO) | payer OTHER ==
[~2022-08-25] VITALS: Ht 147 cm; Wt 55.8 kg
[~2022-08-25 14:09] MED LIST changes: +METO5TAB75 PO; -REGADENOSON 0.4 MG/5 ML SYR (LEXISCAN) IV ONE; +TRM50T PO
--- NOTE | 2022-08-25 14:52 | ED General ---
General Chief Complaint: Dizziness/Syncope Stated Complaint: SWOLLEN TONGUE | DIZZY | WEAKNESS Nursing Triage Note: PT AMB TO RM PT CO OF DIZZINESS, TOUNGUE SWELLING, R SIDED ABD PAIN. Source of Information: Patient Exam Limitations: No Limitations History of Present Illness Date Seen by Provider: Aug 25, 2022 Time Seen by Provider: 14:41 Initial Comments Here with report of dizziness and being thick tongue. She is also got some right upper quadrant abdominal pain that she is unsure what that is although that has been intermittent for quite a while. She has been taking increased Naprosyn and Tylenol for pain otherwise did have some pancreatitis. She follows with Dr. Ly. States the dizziness and tongue swelling has been going on for a few days now. She is here with her daughter who is helping with communica tion. Timing/Duration: 2-3 Days Severity: Mild, Moderate Associated Systoms: No Cough, No Fever/Chills, No Nausea/Vomiting, No Shortness of Air, No Weakness Allergies and Home Medications Allergies Coded Allergies: No Known Drug Allergies (Unverified , 09/04/21) Patient Home Medication List Home Medication List Reviewed: Yes Metoclopramide HCl (Reglan) 5 Mg Tablet, 5 MG PO Q6H Prescribed by: Abby Grigsby on 06/27/22 1441 Tramadol HCl (Tramadol HCl) 50 Mg Tablet, 50 MG PO Q4H PRN for PAIN Prescribed by: Abby Grigsby on 06/27/22 1337 Review of Systems Review of Systems Constitutional: see HPI; No chills, No fever EENTM: mouth pain (Numbness of the tip of the tongue); No nose congestion, No throat pain, No throat swelling Respiratory: No cough, No short of breath Cardiovascular: No chest pain, No edema Gastrointestinal: No nausea, No vomiting Genitourinary: no symptoms reported Musculoskeletal: no symptoms reported All Other Systems Reviewed Negative Unless Noted: Yes Past Byzhbbj-Dasoii-Orlnky Hx Patient Social History Tobacco Use?: No Substance use?: No Alcohol Use?: No Pt feels they are or have been: No Immunizations Up To Date First/Initial COVID19 Vaccinat: 2020 Second COVID19 Vaccination Shree: 2020 Third COVID19 Vaccination Date: 2020 Past Medical History Surgery/Hospitalization HX: pmh: dm Surgeries: No Respiratory: No Cardiac: No Neurological: No Genitourinary: No Endocrine: Yes Diabetes, Non-Insulin dep Family Medical History Reviewed Nursing Family Hx No Pertinent Family Hx Physical Exam Vital Signs Vital Signs - First Documented 08/25/22 14:19 Temp 37.0 Pulse 81 Resp 16 B/P (MAP) 186/102 (130) Pulse Ox 93 Capillary Refill : Height, Weight, BMI Height: '" Weight: lbs. oz. kg; 24.00 BMI Method: General Appearance: No Apparent Distress, WD/WN HEENT: PERRL/EOMI, Pharynx Normal, Other (Tongue normal without lesions) Neck: Non Tender, Supple Respiratory: Lungs Clear, Normal Breath Sounds Cardiovascular: Regular Rate, Rhythm, No Murmur Gastrointestinal: Non Tender, Soft Back: Normal Inspection, No CVA Tenderness, No Vertebral Tenderness Extremity: Normal Range of Motion, Non Tender Neurologic/Psychiatric: Alert, Oriented x3, No Motor/Sensory Deficits, Normal Mood/Affect, enrichment director II-XII Norm as Tested Skin: Normal Color, Warm/Dry Progress/Results/Core Measures Suspected Sepsis SIRS Temperature: Pulse: 81 Respiratory Rate: 16 Laboratory Tests 08/25/22 14:40: White Blood Count 8.2 Blood Pressure 186 /102 Mean: 130 Laboratory Tests 08/25/22 14:40: Creatinine 1.45H, INR Comment 0.9, Platelet Count 230, Total Bilirubin 0.3 Results/Orders Lab Results Laboratory Tests Test 08/25/22 14:40 08/25/22 15:52 08/25/22 16:48 Range/Units White Blood Count 8.2 4.3-11.0 10^3/uL Red Blood Count 4.60 3.80-5.11 10^6/uL Hemoglobin 13.5 11.5-16.0 g/dL Hematocrit 40 35-52 % Mean Corpuscular Volume 87 80-99 fL Mean Corpuscular Hemoglobin 29 25-34 pg Mean Corpuscular Hemoglobin Concent 34 32-36 g/dL Red Cell Distribution Width 12.3 10.0-14.5 % Platelet Count 230 130-400 10^3/uL Mean Platelet Volume 11.0 9.0-12.2 fL Immature Granulocyte % (Auto) 1 % Neutrophils (%) (Auto) 67 42-75 % Lymphocytes (%) (Auto) 25 12-44 % Monocytes (%) (Auto) 6 0-12 % Eosinophils (%) (Auto) 2 0-10 % Basophils (%) (Auto) 0 0-10 % Neutrophils # (Auto) 5.5 1.8-7.8 X 10^3 Lymphocytes # (Auto) 2.0 1.0-4.0 X 10^3 Monocytes # (Auto) 0.5 0.0-1.0 X 10^3 Eosinophils # (Auto) 0.2 0.0-0.3 10^3/uL Basophils # (Auto) 0.0 0.0-0.1 10^3/uL Immature Granulocyte # (Auto) 0.0 0.0-0.1 10^3/uL Prothrombin Time 12.4 12.2-14.7 SEC INR Comment 0.9 0.8-1.4 Activated Partial Thromboplast Time 27 24-35 SEC Sodium Level 135 135-145 MMOL/L Potassium Level 4.5 3.6-5.0 MMOL/L Chloride Level 101 98-107 MMOL/L Carbon Dioxide Level 24 21-32 MMOL/L Anion Gap 10 5-14 MMOL/L Blood Urea Nitrogen 18 7-18 MG/DL Creatinine 1.45 H 0.60-1.30 MG/DL Estimat Glomerular Filtration Rate 40 BUN/Creatinine Ratio 12 Glucose Level 524 *H 70-105 MG/DL Calcium Level 8.6 8.5-10.1 MG/DL Corrected Calcium 9.0 8.5-10.1 MG/DL Total Bilirubin 0.3 0.1-1.0 MG/DL Aspartate Amino Transf (AST/SGOT) 9 5-34 U/L Alanine Aminotransferase (ALT/SGPT) 13 0-55 U/L Alkaline Phosphatase 88 40-136 U/L Troponin I < 0.028 <0.028 NG/ML C-Reactive Protein High Sensitivity 0.14 0.00-0.50 MG/DL Total Protein 6.0 L 6.4-8.2 GM/DL Albumin 3.5 3.2-4.5 GM/DL Lipase 23 8-78 U/L Urine Color YELLOW Urine Clarity CLEAR Urine pH 6.5 5-9 Urine Specific [place] 1.010 L 1.016-1.022 Urine Protein NEGATIVE NEGATIVE Urine Glucose (UA) 3+ H NEGATIVE Urine Ketones NEGATIVE NEGATIVE Urine Nitrite NEGATIVE NEGATIVE Urine Bilirubin NEGATIVE NEGATIVE Urine Urobilinogen 0.2 < = 1.0 MG/DL Urine Leukocyte Esterase NEGATIVE NEGATIVE Urine RBC (Auto) NEGATIVE NEGATIVE Urine RBC NONE /HPF Urine WBC NONE /HPF Urine Squamous Epithelial Cells RARE /HPF Urine Crystals NONE /LPF Urine Bacteria NEGATIVE /HPF Urine Casts NONE /LPF Urine Mucus NEGATIVE /LPF Urine Culture Indicated NO Glucometer 258 H 70-110 MG/DL My Orders Orders - HUBER MEYERS MD Ct Head Wo-R/O Stroke (08/25/22 14:49) Ed Iv/Invasive Line Start (08/25/22 14:49) Ekg Tracing (08/25/22 14:49) Monitor-Rhythm Ecg Trace Only (08/25/22 14:49) Cbc With Automated Diff (08/25/22 14:49) Comprehensive Metabolic Panel (08/25/22 14:49) Hs C Reactive Protein (08/25/22 14:49) Lipase (08/25/22 14:49) Ua Culture If Indicated (08/25/22 14:49) Chest 1 View, Ap/Pa Only (08/25/22 14:49) Ed Iv/Invasive Line Start (08/25/22 14:49) Ns Iv 500 Ml (Sodium Chloride 0.9%) (08/25/22 15:00) Protime With Inr (08/25/22 16:08) Partial Thromboplastin Time (08/25/22 16:08) Troponin I Noel (08/25/22 16:08) Nothing By Mouth (08/25/22 Dinner) Vital Signs Stroke Patient Q15M (08/25/22 16:08) Dysphagia Screening Tool Q10MX1 (08/25/22 16:08) Insulin (Regular) Human (Novolin R (Per (08/25/22 16:08) Ns Iv 500 Ml (Sodium Chloride 0.9%) (08/25/22 16:15) Hemoglobin A1c (08/25/22 17:14) Aspirin Tablet (Aspirin Tablet) (08/25/22 17:30) Ed Admission (Communication) (08/25/22 17:23) Code/Resuscitation (08/25/22 17:23) Lipid Panel (08/26/22 06:00) Medications Given in ED Current Medications Medications Dose Ordered Sig/Michelle Route Start Time Stop Time Status Last Admin Dose Admin Aspirin 325 mg ONCE ONCE PO 08/25/22 17:30 08/25/22 17:31 DC 08/25/22 17:36 325 MG Sodium Chloride 500 ml @ 0 mls/hr Q0M ONCE IV 08/25/22 15:00 08/25/22 15:01 DC 08/25/22 15:05 500 MLS/HR Sodium Chloride 500 ml @ 0 mls/hr Q0M ONCE IV 08/25/22 16:15 08/25/22 16:16 DC 08/25/22 16:19 500 MLS/HR Vital Signs/I&O 08/25/22 14:19 Temp 37.0 Pulse 81 Resp 16 B/P (MAP) 186/102 (130) Pulse Ox 93 Capillary Refill : Blood Pressure Mean: 130 Progress Note : Progress Note Seen and evaluated. I did do stroke screening and stroke scale is 0. Patient is outside of window for tPA if this were to be stroke she has had symptoms for the last few days. We will go ahead and get CT of the head as well as EKG, chest x-ray and labs including CBC, CMP, troponin and UA as she did report previous urinary tract infection. Normal saline 500 mL bolus. Monitor patient. Differential diagnosis includes stroke, dehydration, electrolyte abnormality, UTI 1630: CT of the head shows no acute intracranial hemorrhage on my interpretation. Chest x-ray shows no obvious significant infiltrate on my interpretation. Patient noted to have elevated blood sugar level at greater than 500. This was discussed with the family and the patient. She is on metformin only and is not on insulin and has not been on insulin. CBC shows no significant abnormality. Chemistry shows elevated blood sugars discussed with not significant serum creatinine elevation and LFTs are normal. Troponin is negative. UA does show 3+ glucose. CT of the head results from radiology showed concern for possible subacute stroke and patient did have MRI several months ago which did not show those findings. Insulin 10 units IV and repeat normal saline 500 mL bolus ordered. Given that she has not been on insulin previously, consideration for admission. I have ordered dysphagia screen due to the CT findings. Radiology did report concerns for possible left upper lobe infiltrate. Patient has normal white count without fever. I believe this is very unlikely to be pneumonia at this point and so we will hold on antibiotic or further work-up on that and this will be discussed with admitting physician. Monitor patient. 1720: I did discuss the case with Dr. Terry. Patient's blood sugar is now 258. Given that she is not currently on insulin and there is findings of subacute stroke and she has grossly uncontrolled hyperglycemia, patient would benefit from admission for further evaluation and and insulin dosing. ASA 325 mg p.o. after patient has now passed dysphagia screen. All findings and concerns were discussed with patient and family who agree to admission. Patient is requesting full CODE STATUS which was ordered. Dr. Terry to write orders. ECG Initial ECG Impression Date: Aug 25, 2022 Initial ECG Impression Time: 15:07 Initial ECG Rate: 77 Initial ECG Rhythm: Normal Sinus Comment Sinus rhythm with left axis deviation. No evidence of ST elevation NE. Interpreted by me. Diagnostic Imaging Diagonstic Imaging: CT Plain Films/CT/US/NM/MRI: head Comments [facility] [place], [place] NAME: JOSE MARTIN SMITH [facility] REC#: [id number] PT STATUS: REG ER : 1955 PHYSICIAN: HUBER MEYERS MD ADMIT DATE: 08/25/22/ER Signed Date of Exam:08/25/22 CT HEAD WO-R/O STROKE PROCEDURE: CT head wo r/o stroke. TECHNIQUE: Multiple contiguous axial images were obtained through the brain without the use of intravenous contrast. Auto Exposure Controls were utilized during the CT exam to meet ALARA standards for radiation dose reduction. INDICATION: Dizziness, tongue swelling. FINDINGS: There is no intracranial hemorrhage, hydrocephalus, cerebral edema or evidence for an elevation of the intracranial pressures. Having developed since an MRI 11/25/2021 is an area of hypodensity in the left thalamus suggestive of post ischemic changes of uncertain acuity. An old-appearing lacunar infarct in the high right frontal lobe chronic. No abnormal extra-axial fluid collection. No sulcal effacement. There are no abnormal extra-axial fluid collections. IMPRESSION: 1. Left thalamic lacunar infarct new from comparison MRI but of uncertain acuity, this may be subacute. 2. No hemorrhage or other potential acute abnormalities. Dictated by: Dictated on workstation # [id number] Dict: 08/25/22 1522 Trans: 08/25/22 1642 [facility] [id number] Interpreted by: TIFFANIE RAMIREZ Electronically signed by: TIFFANIE RAMIREZ 08/25/22 1642 Reviewed: Reviewed by Me Diagonstic Imaging: Xray Plain Films/CT/US/NM/MRI: chest Comments [facility] [place] NAME: JOSE MARTIN SMITH [facility] REC#: [id number] PT STATUS: REG ER : 1955 PHYSICIAN: HUBER MEYERS MD ADMIT DATE: 08/25/22/ER Signed Date of Exam:08/25/22 CHEST 1 VIEW, AP/PA ONLY Indication: Dizziness and tongue swelling as well as right-sided abdominal pain. Time of Exam: 3:22 PM Correlation is made with prior chest 09/04/2021. Heart size normal. There is some minimal density in the left upper lobe suggestive of minimal infiltrate. Right lung is clear. There is no effusion or pneumothorax. Impression: Minimal left upper lobe pneumonia. Dictated by: Dictated on workstation # [id number] Dict: 08/25/22 1527 Trans: 08/25/22 1532 CV [id number] Interpreted by: JENNI CERON MD Electronically signed by: JENNI CERON MD 08/25/22 1532 Reviewed: Reviewed by Me Departure Impression Primary Impression: Hyperglycemia due to diabetes mellitus Additional Impression: CVA (cerebrovascular accident) Qualified Codes: I63.9 - Cerebral infarction, unspecified Disposition: ADMITTED INPATIENT Condition: Stable Admissions Decision to Admit Reason: Admit from ER (General) Decision to Admit/Date: Aug 25, 2022 Time/Decision to Admit Time: 17:20 Departure-Patient Inst. Referrals: DIA LY MD (PCP/Family) Primary Care Physician HUBER MEYERS MD Aug 25, 2022 14:52
[2022-08-25 14:58] LABS: BASOPHILS % (AUTO) 0 % (0-10); EOSINOPHILS # (AUTO) 0.2 10^3/uL (0.0-0.3); EOSINOPHILS % (AUTO) 2 % (0-10); HEMATOCRIT 40 % (35-52); HEMOGLOBIN 13.5 g/dL (11.5-16.0); LYMPHOCYTES % (AUTO) 25 % (12-44); MEAN CORPUSCULAR HEMOGLOBIN 29 pg (25-34); MEAN CORPUSCULAR HGB CONC 34 g/dL (32-36); MEAN CORPUSCULAR VOLUME 87 fL (80-99); MONOCYTES # (AUTO) 0.5 X 10^3 (0.0-1.0); MONOCYTES % (AUTO) 6 % (0-12); NEUTROPHILS # (AUTO) 5.5 X 10^3 (1.8-7.8); NEUTROPHILS % (AUTO) 67 % (42-75); PLATELET COUNT 230 10^3/uL (130-400); WHITE BLOOD COUNT 8.2 10^3/uL (4.3-11.0)
[2022-08-25] MEDS ORDERED: NS IV 500 ML 500 ML IV ONE ×2 (15:00→16:15)
[2022-08-25 15:03] LABS: ALBUMIN 3.5 GM/DL (3.2-4.5); POTASSIUM 4.5 MMOL/L (3.6-5.0)
[2022-08-25 15:04] LABS: CALCIUM 8.6 MG/DL (8.5-10.1)
[2022-08-25 15:07] LABS: BILIRUBIN,TOTAL 0.3 MG/DL (0.1-1.0)
[2022-08-25 15:09] LABS: CREATININE SERUM 1.45 MG/DL (0.60-1.30)
--- NOTE | 2022-08-25 15:27 | Diagnostic Imaging Report ---
PROCEDURE: CT head wo r/o stroke. TECHNIQUE: Multiple contiguous axial images were obtained through the brain without the use of intravenous contrast. Auto Exposure Controls were utilized during the CT exam to meet ALARA standards for radiation dose reduction. INDICATION: Dizziness, tongue swelling. FINDINGS: There is no intracranial hemorrhage, hydrocephalus, cerebral edema or evidence for an elevation of the intracranial pressures. Having developed since an MRI 11/25/2021 is an area of hypodensity in the left thalamus suggestive of post ischemic changes of uncertain acuity. An old-appearing lacunar infarct in the high right frontal lobe chronic. No abnormal extra-axial fluid collection. No sulcal effacement. There are no abnormal extra-axial fluid collections. IMPRESSION: 1. Left thalamic lacunar infarct new from comparison MRI but of uncertain acuity, this may be subacute. 2. No hemorrhage or other potential acute abnormalities. Dictated by: Dictated on workstation # [id number]
--- NOTE | 2022-08-25 15:31 | Diagnostic Imaging Report ---
Indication: Dizziness and tongue swelling as well as right-sided abdominal pain. Time of Exam: 3:22 PM Correlation is made with prior chest 09/04/2021. Heart size normal. There is some minimal density in the left upper lobe suggestive of minimal infiltrate. Right lung is clear. There is no effusion or pneumothorax. Impression: Minimal left upper lobe pneumonia. Dictated by: Dictated on workstation # [id number]
[2022-08-25 16:03] LABS: BILIRUBIN,URINE NEGATIVE (NEGATIVE); CLARITY,URINE CLEAR; COLOR,URINE YELLOW; GLUCOSE, URINE (UA) 3+ (NEGATIVE); KETONES,URINE NEGATIVE (NEGATIVE); LEUKOCYTE ESTERASE ,URINE NEGATIVE (NEGATIVE); NITRITE,URINE NEGATIVE (NEGATIVE); PH,URINE 6.5 (5-9); PROTEIN,URINE NEGATIVE (NEGATIVE)
[2022-08-25] MEDS ORDERED: inSUlin (REGULAR) HUMAN 1 UNIT/0.01 ML (CHARGE PER UNIT) IV STA (16:08)
[2022-08-25 16:15] LABS: BACTERIA,URINE NEGATIVE /HPF; SQUAMOUS EPITHELIAL CELL,UR RARE /HPF
[2022-08-25 16:21] LABS: INR 0.9 (0.8-1.4); PROTHROMBIN TIME PATIENT 12.4 SEC (12.2-14.7)
[2022-08-25] MEDS ORDERED: ASPIRIN 325 MG (5 GR) TABLET PO ONE (17:30)
[2022-08-25] MEDS ORDERED: diphenhydrAMINE 50 MG/ML INJ (BENADRYL) IVP PRN (18:15)
[2022-08-25] MEDS ORDERED: ALPRAZolam 0.25 MG (XANAX) TAB PO PRN (18:15)
[2022-08-25] MEDS ORDERED: LACTULOSE SYRUP 10GM/15ML (ENULOSE) 30ML UDC PO PRN (18:15)
[2022-08-25] MEDS ORDERED: ACETAMINOPHEN 325 MG TABLET PO PRN (18:15)
[2022-08-25] MEDS ORDERED: polyethylene glycoL POWDER 17 GM (MIRALAX) PACK PO PRN (18:15)
[2022-08-25] MEDS ORDERED: CALCIUM CARBONATE 500 MG (TUMS) TAB.CHEW PO PRN (18:15)
[2022-08-25] MEDS ORDERED: ANTACID SUSP 30 ML UDC (MYLANTA) PO PRN (18:15)
[2022-08-25] MEDS ORDERED: MILK OF MAGNESIA 400 MG/5 ML 30 ML UDC PO PRN (18:15)
[2022-08-25] MEDS ORDERED: ONDANSETRON 4 MG (ZOFRAN) ORAL DISSOLVE TAB PO PRN (18:15)
[2022-08-25] MEDS ORDERED: cloNIDine 0.1 MG (CATAPRES) TAB PO PRN (18:15)
[2022-08-25] MEDS ORDERED: MELATONIN 3 MG TABLET PO PRN (18:15)
[2022-08-25] MEDS ORDERED: ENOXAPARIN 40 MG/0.4 ML (LOVENOX) SYR SC SCH (18:15)
[2022-08-25] MEDS ORDERED: BISACODYL 10 MG SUPP (DULCOLAX) PR PRN (18:15)
[2022-08-25] MEDS ORDERED: ONDANSETRON 4 MG/2 ML (SDV) Z0FRAN IV PRN (18:15)
[2022-08-25] MEDS ORDERED: HYDROmorphone 2 MG/ML VIAL (DILAUDID) IV PRN (18:15)
[2022-08-25] MEDS ORDERED: diphenhydrAMINE 25 MG TAB (BENADRYL) PO PRN (18:15)
[2022-08-25] MEDS ORDERED: RT-ALBUTEROL SULF 2.5 MG/3 ML PRE-MIX VIAL INH PRN (18:45)
[2022-08-25] MEDS: NS IV 1000 ML 1,000 ML IV SCH (18:59)
[2022-08-25] MEDS ORDERED: ENOXAPARIN INJECTION 30 MG/0.3 ML SYR SC SCH (19:00)
[2022-08-25 19:07] VITALS: BP 153/90
[2022-08-25] MEDS: DOCUSATE SODIUM 100 MG (COLACE) CAP PO SCH (20:31)
[2022-08-25] MEDS: SENNOSIDES 8.6 MG (SENOKOT) TAB PO SCH (20:31)
[2022-08-25] MEDS: inSUlin ASPART (NovoLOG) 1 UNIT/0.01 ML (CHARGE PER UNIT) SC SCH (21:36)
[2022-08-26] VITALS: BP 147/81
[2022-08-26 04:00] VITALS: BP 141/84
[2022-08-26] MEDS: NS IV 1000 ML 1,000 ML IV SCH (04:16)
[2022-08-26 05:12] LABS: BASOPHILS % (AUTO) 0 % (0-10); EOSINOPHILS # (AUTO) 0.2 10^3/uL (0.0-0.3); EOSINOPHILS % (AUTO) 2 % (0-10); HEMATOCRIT 36 % (35-52); HEMOGLOBIN 11.9 g/dL (11.5-16.0); LYMPHOCYTES # (AUTO) 2.4 10^3/uL (1.0-4.0); LYMPHOCYTES % (AUTO) 28 % (12-44); MEAN CORPUSCULAR HEMOGLOBIN 29 pg (25-34); MEAN CORPUSCULAR HGB CONC 33 g/dL (32-36); MEAN CORPUSCULAR VOLUME 88 fL (80-99); MEAN PLATELET VOLUME 11.2 fL (9.0-12.2); MONOCYTES # (AUTO) 0.5 10^3/uL (0.0-1.0); MONOCYTES % (AUTO) 5 % (0-12); NEUTROPHILS # (AUTO) 5.4 10^3/uL (1.8-7.8); NEUTROPHILS % (AUTO) 64 % (42-75); PLATELET COUNT 217 10^3/uL (130-400); WHITE BLOOD COUNT 8.5 10^3/uL (4.3-11.0)
[2022-08-26 05:35] LABS: BILIRUBIN,TOTAL 0.3 MG/DL (0.1-1.0); CALCIUM 7.9 MG/DL (8.5-10.1); POTASSIUM 3.6 MMOL/L (3.6-5.0)
[2022-08-26] MEDS: inSUlin ASPART (NovoLOG) 1 UNIT/0.01 ML (CHARGE PER UNIT) SC SCH ×2 (05:52→11:23)
--- NOTE | 2022-08-26 06:28 | Short Stay Summary-Hospitalist ---
History of Present Illness HPI/Chief Complaint CC: Hyperglycemia and subacute CVA HPI: This is a 67yoHF clinic patient of [facility] who has a h/o DM who presented to the ER with weakness and dizziness. She had a CVA w/u which revealed a subacute CVA so she was placed on CVA protocol. Her sugars decreased dramatically and no longer has needed any insulin since 10mg IV once in ER. Source: patient, family Exam Limitations: language barrier Date Seen 08/26/22 Time Seen by a Provider: 11:00 Attending Physician Brittani Thomas MD PCP Admitting Physician: Emily Terry DO Attending Physician: Emily Terry DO Referring Physician Date of Admission Aug 25, 2022 at 17:56 Home Medications & Allergies Home Medications Reviewed patient Home Medication Reconciliation performed by pharmacy medication reconciliations coal gasification technician and/or nursing. Patients Allergies have been reviewed. Allergies Allergies Coded Allergies No Known Drug Allergies (Unverified09/04/21) Past Znwgiue-Rrlqbn-Lpscde Hx Patient Social History Marrital Status: single Employed/Student: retired Tobacco Use?: No Smoking Status: Never a Smoker Use of E-Cig and/or Vaping dev: No Substance use?: No Alcohol Use?: No Pt feels they are or have been: No Immunizations Up To Date First/Initial COVID19 Vaccinat: 2020 Second COVID19 Vaccination Shree: 2020 Current Status status: No Advance Directives: No Communicates: Verbally Primary Language: Armenian Preferred Spoken Language: Armenian Is interpretation needed?: Yes Implanted or Applied Medical D: None Past Medical History Diabetes, Non-Insulin dep Family Medical History Reviewed Nursing Family Hx No Pertinent Family Hx Review of Systems Constitutional: see HPI, dizziness, malaise, weakness Physical Exam Physical Exam Vital Signs Vital Signs - First Documented 08/25/22 08/25/22 08/25/22 14:19 18:00 18:41 Temp 37.0 Pulse 81 Resp 16 B/P (MAP) 186/102 (130) Pulse Ox 93 O2 Delivery Room Air FiO2 21 Capillary Refill : Height, Weight, BMI Height: '" Weight: lbs. oz. 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 Short Stay Diagnosis Discharge Diagnosis-Short Stay Admission Diagnosis Hyperglycemia CVA subacute HTN HTG Final Discharge Diagnosis Hyperglycemia CVA subacute with no residual HTN HTG Conclusion Plan PT OT No CVA residual DC home EMILY TERRY DO Aug 26, 2022 06:28
[2022-08-26 08:09] VITALS: BP 183/93
[2022-08-26] MEDS: DOCUSATE SODIUM 100 MG (COLACE) CAP PO SCH (08:27)
[2022-08-26] MEDS: SENNOSIDES 8.6 MG (SENOKOT) TAB PO SCH (08:27)
[2022-08-26] MEDS ORDERED: PANTOPRAZOLE 40 MG (PROTONIX) TAB PO SCH (09:00)
[2022-08-26] MEDS ORDERED: CLOPIDOGREL 75 MG (PLAVIX) TABLET PO SCH (09:00)
[2022-08-26] MEDS ORDERED: ASPIRIN E.C. 81 MG (ECOTRIN) TAB PO SCH (09:00)
[2022-08-26] MEDS ORDERED: amLODIPine 5 MG (NORVASC) TAB PO SCH (09:00)
--- NOTE | 2022-08-26 10:04 | Physical Therapy Evaluation ---
PT Evaluation-General Medical Diagnosis Admission Date Aug 25, 2022 at 17:56 Medical Diagnosis: Diabetes Onset Date: Aug 26, 2022 Therapy Diagnosis Therapy Diagnosis: mobility impairment Precautions Precautions/Isolations: Standard Precautions Referral Physician: Emily Terry Reason for Referral: Evaluation/Treatment Medical History Pertinent Medical History: DM Current History Pt admitted via ER on 08/25 due to dizziness, swelling of the tongue, and abdominal Pain. Assessed for CVA, testing negative. Pt found to have significantly elevated blood sugars and was admitted for observation and further testing. Reviewed History: Yes Social History Home: Single Level Current Living Status: Spouse Prior Prior Level of Function SCALE: Activities may be completed with or without assistive devices. 4-Zjvwphohmj-qishort completes the activity by him/herself with no assistance from a helper. 5-Set-up or Clean-up Assistance-helper sets up or cleans up; patient completes activity. [place] assists only prior to or following the activity. 4-Supervision or Touching Assistance-helper provides verbal cues and/or touching/steadying and/or contact guard assistance as patient completes activity. Assistance may be provided throughout the activity or intermittently. 3-Partial/Moderate Assistance-helper does LESS THAN HALF the effort. [place] lifts, holds or supports trunk or limbs, but provides less than half the effort. 2-Substantial/Maximal Assistance-helper does MORE THAN HALF the effort. [place] lifts or holds trunk or limbs and provides more than half the effort. 5-Cyggwuypq-krldfh does ALL the effort. Patient does none of the effort to complete the activity. Or, the assistance of 2 or more helpers is required for the patient to complete the activity. If activity was not attempted, code reason: 7-Patient Refused. 9-Not Applicable-not attempted and the patient did not perform the activity before the current illness, exacerbation or injury. 10-Not Attempted due to Environmental Limitations-(lack of equipment, weather restraints, etc.). 88-Not Attempted due to Medical Conditions or Safety Concerns. Bed Mobility: 6 Transfers (B,C,W/C): 6 Gait: 6 Stairs: 6 PT Evaluation-Current Subjective Pt and daughter report that her mobility is at baseline. Objective Patient Orientation: Normal For Age Attachments: IV ROM/Strength ROM Upper Extremities WNL ROM Lower Extremities WNL Strength Upper Extremities WNL Strength Lower Extremities WNL Sensory Vision: Functional Hearing: Functional Sensation Right Upper Extremit: Intact Sensation Left Upper Extremity: Intact Transfers Roll Left to Right (QC): 6 Sit to Lying (QC): 6 Lying to Sitting/Side of Bed(Q: 6 Sit to Stand (QC): 6 Chair/Hkw-se-Hmqno Xfer(QC): 6 Gait Does the Patient Walk?: Yes Mode of Locomotion: Walk Distance: 1000 Gait Assistive Device: None Comments/Gait Description Ambulate with device 1000 ft, no loss of balance, no need for assistance Balance Sitting Static: Normal Sitting Dynamic: Normal Standing Static: Good Standing Dynamic: Good Assessment/Needs Pt demonstrated independent mobility in the room. Her ambulatation is steady. Pt's daughter was advised that it would be fine for her to walk her mom in the hallway with assist for IV. Pt doesn not require skilled PT services at this time and is dischared from therapy services. 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 Intermediate Goals PT Power Plant Mechanic Goals Time Frame: Aug 26, 2022 Roll Left & Right (QC): 6 Sit to Lying (QC): 6 Lying-Sitting on Side/Bed(QC): 6 Sit to Stand (QC): 6 Chair/Iff-qi-Omfqw Xfer(QC): 6 Toilet Transfer (QC): 6 Does the Patient Walk: Yes Walk 10 feet (QC): 6 Walk 50ft with 2 Turns (QC): 6 Walk 150 ft (QC): 6 Walking 10ft on Uneven Surface: 6 PT Plan Treatment/Plan Treatment Plan: Discontinue PT, goals met Treatment Duration: Aug 26, 2022 Frequency: 1 time per week Estimated Hrs Per Day: .25 hour per day Patient and/or Family Agrees t: Yes Discharge Recommendations Therapy Discharge Recommendati: Home & Family Time Time In: 900 Time Out: 910 DATE: Aug 26, 2022 Total Billed Treatment Time: 10 Total Billed Treatment visit, eval low complexity 10 min LIONEL FRANK PT Aug 26, 2022 10:04
[2022-08-26] MEDS ORDERED: METF-397 PO (11:19)
[2022-08-26] MEDS ORDERED: CLOP75TA28 PO (11:21)
[2022-08-26] MEDS ORDERED: ASPI-1238 PO (11:21)
[2022-08-26] MEDS ORDERED: ATOR80TA76 PO (11:21)
[2022-08-26] MEDS ORDERED: AMLO-250 PO (11:21)
[2022-08-26 11:25] VITALS: BP 175/90
== END 2022-08-26 11:20 | disposition home or self-care (01) ==
LOC: EDUNIT# 14:09 → ER 14:12 → UNDOADMOB 17:56 → 4TH 17:56 → UNDODISOB 08-26 11:20
PROVIDERS: ADMIT Internal Medicine; ATTEND Internal Medicine
DX: E11.65 Type 2 diabetes mellitus with hyperglycemia (principal); I63.9 Cerebral infarction, unspecified; I10 Essential (primary) hypertension; E78.1 Pure hyperglyceridemia
CPT/HCPCS: 70450; 71045; 80053 ×2; 80061; 81000; 82947 ×2; 83036; 83690; 84484; 85025 ×2; 85610; 85730; 86141; 93005; 94664; 96372; 97161; 99284; G0378; 36415

== ENCOUNTER → 2022-09-06 | Outpatient (CLI) | payer SELFPAY ==
[~2022-09-06] MED LIST changes: +AMLO-250 PO; +ASPI-1238 PO; +ATOR80TA76 PO; +CLOP75TA28 PO; +METF-397 PO
--- NOTE | 2022-09-06 15:35 | Diagnostic Imaging Report ---
EXAMINATION: MRI of the abdomen without contrast. MRCP TECHNIQUE: Multiplanar, multisequence MR images of the abdomen were obtained without intravenous contrast including 3D MIP MRCP images. HISTORY: Right upper quadrant. COMPARISON: None available. FINDINGS: Liver: No suspicious liver lesions. No steatosis. No surface nodularity. Ducts: No biliary ductal dilation. Gallbladder: Absent. Pancreas: Normal. Spleen: Normal. Adrenals: Normal. Kidneys: No suspicious lesions. No hydronephrosis. Bowel: Normal. Other: No lymphadenopathy. Visualized portions of the thorax are normal. No suspicious osseus lesions. IMPRESSION: 1. No acute abnormality in the abdomen. Dictated by: Dictated on workstation # [id number]
== END ==
LOC: RAD 11:52
PROVIDERS: ATTEND Surgery
DX: R10.11 Right upper quadrant pain (principal)
CPT/HCPCS: 74181

== ENCOUNTER 2022-09-27 06:24 | Outpatient (CLI) | payer SELFPAY ==
[~2022-09-27] VITALS: Ht 157.5 cm; Wt 54.4 kg
== END 2022-09-27 18:02 ==
LOC: PREOP 06:24
PROVIDERS: ATTEND Surgery
DX: Z01.818 Encounter for other preprocedural examination (principal)

== ENCOUNTER 2022-10-03 12:49 | Day surgery (SDC) | payer OTHER ==
[~2022-10-03] VITALS: Ht 157.5 cm; Wt 54.4 kg
[2022-10-03] MEDS ORDERED: LACTATED RINGERS 1,000 ML IV STA (12:58)
[2022-10-03] MEDS ORDERED: HURRICAINE EXT TUBE (BENZOCAINE) XX PRN (13:00)
[2022-10-03 13:08] VITALS: BP 138/106
--- NOTE | 2022-10-03 13:20 | Progress Note-Pre Operative ---
Pre-Operative Progress Note Date H&P Reviewed: Oct 03, 2022 Time H&P Reviewed: 13:20 History & Physical: H&P Reviewed, Patient Examed, No changes noted Pre-Operative Diagnosis: ruq abdominal pain, screening colonoscopy PATRICIA ZAVALETA DO Oct 03, 2022 13:20
[2022-10-03] MEDS ORDERED: PROPOFOL INJECTION 50 ML IV ONE (13:49)
[2022-10-03] MEDS ORDERED: MIDAZOLAM 2 MG/2 ML (VERSED) VIAL ONE (13:49)
[2022-10-03] MEDS ORDERED: PANT40TA2 PO (14:18)
[2022-10-03 14:20] VITALS: BP 84/52
--- NOTE | 2022-10-03 14:20 | Discharge Inst-Simple/Standard ---
Discharge Inst-Standard Discharge Medications New, Converted or Re-Newed RX: Transmitted to Pharmacy Patient Instructions/Follow Up Plan of Care/Instructions/FU: 2 weeks alberto Activity as Tolerated: Yes Discharge Diet: Regular Diet PATRICIA ZAVALETA DO Oct 03, 2022 14:20
--- NOTE | 2022-10-03 14:22 | Anesthesia-General Post-Op ---
MAC Patient Condition Mental Status/LOC: Same as Preop Cardiovascular: Satisfactory Nausea/Vomiting: Absent Respiratory: Satisfactory Pain: Controlled Complications: Absent Post Op Complications Complications None Follow Up Care/Instructions Patient Instructions None needed. Anesthesiology Discharge Order Discharge Order Patient is doing well, no complaints, stable vital signs, no apparent adverse anesthesia problems. No complications reported per nursing. TEODORO MEJÍA CRNA Oct 03, 2022 14:22
--- NOTE | 2022-10-03 14:24 | Progress Note-Post Operative ---
Post-Operative Progess Note Surgeon (s)/Hydro Electric Station Operator (s) Surgeon PATRICIA ZAVALETA DO Hydro Electric Station Operator: none Pre-Operative Diagnosis ruq abdominal pain, screening colonoscopy Post-Operative Diagnosis mucosal change stomach diverticulosis Procedure & Operative Findings Date of Procedure 10/03/22 Procedure Performed/Findings Egd with biopsies and colonoscopy Anesthesia Type per INDUSTRIAL ECONOMIST Estimated Blood Loss Estimated blood loss (mL): none Specimens/Packing Specimens Removed polyps antrum and body PATRICIA ZAVALETA DO Oct 03, 2022 14:24
[2022-10-03 14:25] VITALS: BP 109/64
[2022-10-03 14:28] VITALS: BP 109/64
[2022-10-03 14:30] VITALS: BP 100/60
[2022-10-03 14:54] VITALS: BP 100/60
--- NOTE | 2022-10-03 20:00 | OPERATIVE REPORT ---
DATE OF SERVICE: 10/03/2022 PREOPERATIVE DIAGNOSES: Right upper quadrant abdominal pain, screening colonoscopy. POSTOPERATIVE DIAGNOSES: Mucosal changes in the stomach, diverticulosis. PROCEDURES: EGD with biopsies, colonoscopy. SURGEON: Patricia Bergman DO ANESTHESIA: Per COMMUTER PILOT. ESTIMATED BLOOD LOSS: None. COMPLICATIONS: None. INDICATIONS: The patient is a 67-year-old female with right upper quadrant abdominal pain, needing screening colonoscopy. She understands risks and benefits of procedure and wishes to proceed. Consent was signed in chart. DESCRIPTION OF PROCEDURE: The patient was taken to endoscopy suite, placed in the left lateral recumbent position. Timeout was performed. Scope was inserted in the mouth, down the esophagus, stomach, into the duodenum without difficulty. No polyps, masses or ulcerations in the duodenum. Scope was slowly retracted back into the stomach where it was further insufflated. No polyps, masses or ulcerations. Slight mucosal change of the body of the stomach. Biopsy of the antrum and body were obtained. Scope was retroflexed noting no other pathology. Scope was returned to its normal position, slowly withdrawn to distal esophagus. No polyps, masses or ulcerations. Scope was slowly retracted back until completely removed. Digital rectal exam was performed. No palpable polyps, masses or ulcerations. Scope was inserted in the rectum and advanced all the way to the cecum with minimal difficulty. Prep was adequate. Scope was slowly retracted back. No polyps, masses or ulcerations in the cecum, ascending, transverse, descending and sigmoid colon. Once in the rectum, Scope was retroflexed noting no other pathology. Scope was returned to its normal position, slowly withdrawn until completely removed. The patient tolerated the procedure well without complications, taken to recovery room in stable condition. RECOMMENDATIONS: The patient will start Protonix 40 mg daily. Await biopsy results. She will need repeat colonoscopy in 10 years unless family history of colon cancer, which will then be 5 years. Any issues before that, be seen at that time. The patient will follow up in 2 weeks to see how she is doing and go over pathology. Job ID: [id number] DocumentID: [id number] Dictated Date: 10/03/2022 14:23:50 Computer Systems Support Specialist Date: 10/03/2022 19:58:00 Dictated By: PATRICIA BERGMAN DO
== END 2022-10-03 15:01 | disposition home or self-care (01) ==
LOC: ENDO 12:49
PROVIDERS: ATTEND Surgery
DX: Z12.11 Encounter for screening for malignant neoplasm of colon (principal); K57.30 Diverticulosis of large intestine without perforation or abscess without bleeding; K29.50 Unspecified chronic gastritis without bleeding; B96.81 Helicobacter pylori [H. pylori] as the cause of diseases classified elsewhere; Z79.1 Long term (current) use of non-steroidal anti-inflammatories (NSAID); E11.9 Type 2 diabetes mellitus without complications
CPT/HCPCS: 82947

== ENCOUNTER 2022-11-27 08:00 | Outpatient (RCR) | payer SELFPAY ==
[~2022-11-27 08:00] MED LIST changes: +PANT40TA2 PO
== END 2022-12-02 | disposition home or self-care (01) ==
LOC: LAB 08:00
PROVIDERS: ATTEND Surgery
DX: Z01.89 Encounter for other specified special examinations (principal); B96.81 Helicobacter pylori [H. pylori] as the cause of diseases classified elsewhere

== ENCOUNTER 2022-12-13 09:25 | Emergency (ER) | payer OTHER ==
--- NOTE | 2022-12-13 09:53 | ED Abdominal Pain ---
General Chief Complaint: Abdominal/GI Problems Stated Complaint: ABD PAIN Nursing Triage Note: PT CO OF ABD PAIN, HAS BEEN GOING ON FOR 4 MONTHS, PT HAS EGD AND COLONOSCOPY IN NOV FOR PAIN. PT HAS H PYLORI AND HAS TAKEN ROUND OF ANTIBIOTIC AND CONT TO HAVE PAIN 10/12. DENIES N/V/D BUT MAY HAVE HAD FEVER LAST PM. 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 She has had extensive work-up and therapies in the pasts. Pain is intermittent and waxing and waning in intensity. She alternates between constipation and diarrhea. She sometimes has to treat constipation. She denies fever. She has slow urination and sometimes dribbles but not pain with urination. No hematuria. She completed triple therapy for H. pylori about 3 weeks ago. H. pylori was diagnosed by EGD. She had some modest brief improvement with this therapy. CT and MRI of the abdomen and pelvis done earlier this year were both negative and reports were reviewed by me. GB is surgically absent. No other etiology for her pain has been discovered by endoscopy per reports reviewed. She has poor appetite, especially on the triple therapy. Pain is not present every day. Allergies and Home Medications Allergies Coded Allergies: No Known Drug Allergies (Unverified , 09/04/21) Patient Home Medication List Home Medication List Reviewed: Yes Amlodipine Besylate (Amlodipine Besylate) 5 Mg Tablet, 5 MG PO DAILY@0900 Prescribed by: DIALLO MONK on 08/26/22 1121 Aspirin (Aspirin EC) 81 Mg Tablet.dr 81 MG PO DAILY Prescribed by: DIALLO MONK on 08/26/22 1121 Atorvastatin Calcium (Atorvastatin Calcium) 80 Mg Tablet, 80 MG PO DAILY Prescribed by: DIALLO MONK on 08/26/22 1121 Clopidogrel Bisulfate (Clopidogrel) 75 Mg Tablet, 75 MG PO DAILY Prescribed by: DIALLO MONK on 08/26/22 1121 Metformin HCl (Metformin HCl) 500 Mg Tablet, 500 MG PO DAILY Prescribed by: DIALLO MONK on 08/26/22 1119 Pantoprazole Sodium (Protonix) 40 Mg Tablet.dr, 40 MG PO DAILY Prescribed by: PATRICIA ZAVALETA on 10/03/22 1418 Pantoprazole Sodium (Protonix) 40 Mg Tablet.dr, 40 MG PO DAILY Prescribed by: KATHRYN SCHULZ on 12/13/22 1254 Review of Systems Review of Systems Constitutional: no symptoms reported EENTM: No Symptoms Reported Respiratory: No Symptoms Reported Cardiovascular: No Symptoms Reported Gastrointestinal: See HPI Genitourinary: See HPI Musculoskeletal: no symptoms reported Skin: no symptoms reported Psychiatric/Neurological: No Symptoms Reported Endocrine: No Symptoms Reported Hematologic/Lymphatic: No Symptoms Reported Past Mipzkeh-Uvijkw-Bqkmvs Hx Patient Social History Tobacco Use?: No Substance use?: No Alcohol Use?: No Pt feels they are or have been: No Immunizations Up To Date First/Initial COVID19 Vaccinat: 2020 Second COVID19 Vaccination Shree: 2020 Third COVID19 Vaccination Date: 2020 Seasonal Allergies Seasonal Allergies: No Past Medical History Surgery/Hospitalization HX: pmh: dm, RECENT HX H-PYLORI, HAD KIDNEY INFECTION THAT HAD TO BE DRAINED Surgeries: Yes (EGD and colonoscopy with biopsies) Gallbladder Respiratory: No Cardiac: Yes High Cholesterol, Hypertension Neurological: Yes (STROKE x2 ) Stroke : No Genitourinary: No Gastrointestinal: Yes (h. pylori) Diverticulosis, Gall Bladder Disease Musculoskeletal: No Endocrine: Yes Diabetes, Non-Insulin dep HEENT: No Cancer: No Psychosocial: No Integumentary: No Blood Disorders: No Family Medical History No Pertinent Family Hx Physical Exam Vital Signs Vital Signs - First Documented 12/13/22 09:30 Temp 36.9 Pulse 87 Resp 18 B/P (MAP) 143/91 (108) Pulse Ox 97 Capillary Refill : Less Than 3 Seconds Height/Weight/BMI Height: '" Weight: lbs. oz. kg; BMI Method: General Appearance: WD/WN, mild distress HEENT: normal ENT inspection Neck: normal inspection Respiratory: lungs clear, normal breath sounds, no respiratory distress Cardiovascular: regular rate, rhythm, no edema, no murmur Gastrointestinal: normal bowel sounds, soft; No distended; guarding (right mid abdomen), tenderness (right mid abdomen) Extremities: normal inspection, no pedal edema Neurologic/Psychiatric: no motor/sensory deficits, alert, normal mood/affect, oriented x 3 Skin: normal color, warm/dry Progress/Results/Core Measures Results/Orders Lab Results Laboratory Tests Test 12/13/22 09:48 12/13/22 09:59 Range/Units White Blood Count 9.3 4.3-11.0 10^3/uL Red Blood Count 4.22 3.80-5.11 10^6/uL Hemoglobin 12.6 11.5-16.0 g/dL Hematocrit 39 35-52 % Mean Corpuscular Volume 91 80-99 fL Mean Corpuscular Hemoglobin 30 25-34 pg Mean Corpuscular Hemoglobin Concent 33 32-36 g/dL Red Cell Distribution Width 13.0 10.0-14.5 % Platelet Count 245 130-400 10^3/uL Mean Platelet Volume 10.6 9.0-12.2 fL Immature Granulocyte % (Auto) 0 % Neutrophils (%) (Auto) 86 H 42-75 % Lymphocytes (%) (Auto) 8 L 12-44 % Monocytes (%) (Auto) 5 0-12 % Eosinophils (%) (Auto) 1 0-10 % Basophils (%) (Auto) 0 0-10 % Neutrophils # (Auto) 8.0 H 1.8-7.8 10^3/uL Lymphocytes # (Auto) 0.7 L 1.0-4.0 10^3/uL Monocytes # (Auto) 0.4 0.0-1.0 10^3/uL Eosinophils # (Auto) 0.1 0.0-0.3 10^3/uL Basophils # (Auto) 0.0 0.0-0.1 10^3/uL Immature Granulocyte # (Auto) 0.0 0.0-0.1 10^3/uL Sodium Level 141 135-145 MMOL/L Potassium Level 4.2 3.6-5.0 MMOL/L Chloride Level 109 H 98-107 MMOL/L Carbon Dioxide Level 23 21-32 MMOL/L Anion Gap 9 5-14 MMOL/L Blood Urea Nitrogen 17 7-18 MG/DL Creatinine 1.05 0.60-1.30 MG/DL Estimat Glomerular Filtration Rate 59 BUN/Creatinine Ratio 16 Glucose Level 212 H 70-105 MG/DL Calcium Level 8.3 L 8.5-10.1 MG/DL Corrected Calcium 8.8 8.5-10.1 MG/DL Total Bilirubin 0.4 0.1-1.0 MG/DL Aspartate Amino Transf (AST/SGOT) 15 5-34 U/L Alanine Aminotransferase (ALT/SGPT) 11 0-55 U/L Alkaline Phosphatase 75 40-136 U/L C-Reactive Protein High Sensitivity 0.09 0.00-0.50 MG/DL Total Protein 5.9 L 6.4-8.2 GM/DL Albumin 3.4 3.2-4.5 GM/DL Lipase 16 8-78 U/L Urine Color YELLOW Urine Clarity CLEAR Urine pH 5.5 5-9 Urine Specific [place] 1.015 L 1.016-1.022 Urine Protein 2+ H NEGATIVE Urine Glucose (UA) TRACE H NEGATIVE Urine Ketones NEGATIVE NEGATIVE Urine Nitrite NEGATIVE NEGATIVE Urine Bilirubin NEGATIVE NEGATIVE Urine Urobilinogen 0.2 < = 1.0 MG/DL Urine Leukocyte Esterase NEGATIVE NEGATIVE Urine RBC (Auto) TRACE H NEGATIVE Urine RBC NONE /HPF Urine WBC RARE /HPF Urine Squamous Epithelial Cells 0-2 /HPF Urine Crystals NONE /LPF Urine Bacteria TRACE /HPF Urine Casts NONE /LPF Urine Mucus NEGATIVE /LPF Urine Culture Indicated NO My Orders Orders - KATHRYN PARRISH MD Ua Culture If Indicated (12/13/22 09:29) Cbc And Automated Diff (12/13/22 10:21) Comprehensive Metabolic Panel (12/13/22 10:21) Hs C Reactive Protein (12/13/22 10:21) Lipase (12/13/22 10:21) Ed Iv/Invasive Line Start (12/13/22 10:21) Abdomen, Flat & Upright/Decub (12/13/22 10:21) Ketorolac Injection (Ketorolac Injection (12/13/22 11:30) Medications Given in ED Vital Signs/I&O 12/13/22 12/13/22 09:30 12:59 Temp 36.9 Pulse 87 72 Resp 18 16 B/P (MAP) 143/91 (108) 132/72 Pulse Ox 97 99 Blood Pressure Mean: 108 Progress Progress Note : Progress Note CC reviewed and UA ordered at 0929. Thorough review of patient's chart was conducted. I was in room to examine patient at 0953. Labs were obtained and interpreted by me. CBC, CMP, Lipase, CRP, and UA demonstrated no clinically significant abnormalities except for hyperglycemia of 212. Pain was treated with toradol. Abdominal x-rays were viewed by me with no acute abnormalities appreciated. Radiologist's report was reviewed as below with no evidence of constipation or bowel obstruction. Ultimately, not definite cause of her pain was identified. IBS or adhesive disease were possibilities considered. Location of pain does not fit with persistent H. pylori infection. She has no gallbladder. No biliary tree abnormalities were noted on MRI or CT. See discharge instructions for further discussion. Results, instructions, and possible causes were discussed with patient and at length with the assistance of bilingual staff. Diagnostic Imaging Diagonstic Imaging: Xray Plain Films/CT/US/NM/MRI: abdomen, pelvis Comments NAME: JOSE MARTIN SMITH [facility] REC#: [id number] PT STATUS: DEP ER : 1955 PHYSICIAN: KATHRYN PARRISH MD ADMIT DATE: 12/13/22/ER Signed Date of Exam:12/13/22 ABDOMEN, FLAT & UPRIGHT/DECUB INDICATION: Abdominal pain 4 months duration, H. pylori. Supine and upright abdominal film showed no air-fluid levels or free gas. The bowel gas pattern unremarkable. There is no abnormal fecal loading. No obstructive features. Incidental pelvic phleboliths present and there are clips at the gallbladder fossa. IMPRESSION: No acute appearing abnormality. Dictated by: Dictated on workstation # [id number] Dict: 12/13/22 1051 Trans: 12/13/22 1320 [id number] Interpreted by: TIFFANIE RAMIREZ Electronically signed by: TIFFANIE RAMIREZ 12/13/22 1320 Departure Impression Primary Impression: Right-sided abdominal pain of unknown cause Disposition: 01 HOME, SELF-CARE Condition: Stable Departure-Patient Inst. Decision time for Depature: 12:47 Referrals: DIA LY MD (PCP/Family) Primary Care Physician Patient Instructions: Abdominal Pain, Adult ED Add. Discharge Instructions: No definite cause for your abdominal pain was determined by your work-up in the emergency room or review of your prior work-ups. H. pylori is unlikely to be a continued cause of your pain based on the location of the pain. Possible causes of your pain may include irritable bowel syndrome or abdominal adhesions. Please discuss these possibilities with your primary care provider and Dr. Zavaleta. Follow-up with Dr. Zavaleta and your primary care provider soon as possible. Try taking Protonix (pantoprazole) as prescribed daily for the next 2 weeks. If this improves your pain, discussed continuing with your doctors. You may take Tylenol (acetaminophen) up to 1000 mg every 6 hours as needed for primary pain control. Add either ibuprofen up to 600 mg every 6 hours or naproxen (Naprosyn) up to 500 mg every 12 hours as needed for pain not controlled by Tylenol. Try to use these NSAID medications sparingly as they may cause worsening stomach irritation or problems with kidney function and your diabetes. Your episode of confusion yesterday may have been related to low blood sugar. If you are not eating well, do not take the glipizide diabetes medication. Return to the ER if you have worsening symptoms despite following these instructions. All discharge instructions reviewed with patient and/or family. Voiced understanding. Scripts Pantoprazole Sodium (Protonix) 40 Mg Tablet. 40 MG PO DAILY, #14 TAB Prov: KATHRYN PARRISH MD 12/13/22 Copy Copies To 1: DIA LY MD Copies To 2: PATRICIA ZAVALETA JOSHUA T MD Dec 13, 2022 09:53
[2022-12-13 10:27] LABS: BASOPHILS % (AUTO) 0 % (0-10); EOSINOPHILS # (AUTO) 0.1 10^3/uL (0.0-0.3); EOSINOPHILS % (AUTO) 1 % (0-10); HEMATOCRIT 39 % (35-52); HEMOGLOBIN 12.6 g/dL (11.5-16.0); LYMPHOCYTES # (AUTO) 0.7 10^3/uL (1.0-4.0); LYMPHOCYTES % (AUTO) 8 % (12-44); MEAN CORPUSCULAR HEMOGLOBIN 30 pg (25-34); MEAN CORPUSCULAR HGB CONC 33 g/dL (32-36); MEAN CORPUSCULAR VOLUME 91 fL (80-99); MEAN PLATELET VOLUME 10.6 fL (9.0-12.2); MONOCYTES # (AUTO) 0.4 10^3/uL (0.0-1.0); MONOCYTES % (AUTO) 5 % (0-12); NEUTROPHILS % (AUTO) 86 % (42-75); PLATELET COUNT 245 10^3/uL (130-400); WHITE BLOOD COUNT 9.3 10^3/uL (4.3-11.0)
[2022-12-13 10:29] LABS: ALBUMIN 3.4 GM/DL (3.2-4.5); POTASSIUM 4.2 MMOL/L (3.6-5.0)
[2022-12-13 10:29] LABS: CLARITY,URINE CLEAR; COLOR,URINE YELLOW; PH,URINE 5.5 (5-9)
[2022-12-13 10:30] LABS: CALCIUM 8.3 MG/DL (8.5-10.1)
[2022-12-13 10:30] LABS: BACTERIA,URINE TRACE /HPF; BILIRUBIN,URINE NEGATIVE (NEGATIVE); GLUCOSE, URINE (UA) TRACE (NEGATIVE); KETONES,URINE NEGATIVE (NEGATIVE); LEUKOCYTE ESTERASE ,URINE NEGATIVE (NEGATIVE); NITRITE,URINE NEGATIVE (NEGATIVE); PROTEIN,URINE 2+ (NEGATIVE); SQUAMOUS EPITHELIAL CELL,UR 0-2 /HPF; WBC,URINE RARE /HPF
[2022-12-13 10:32] LABS: TOTAL PROTEIN 5.9 GM/DL (6.4-8.2)
[2022-12-13 10:33] LABS: BILIRUBIN,TOTAL 0.4 MG/DL (0.1-1.0)
[2022-12-13 10:35] LABS: CREATININE SERUM 1.05 MG/DL (0.60-1.30)
--- NOTE | 2022-12-13 11:00 | Diagnostic Imaging Report ---
INDICATION: Abdominal pain 4 months duration, H. pylori. Supine and upright abdominal film showed no air-fluid levels or free gas. The bowel gas pattern unremarkable. There is no abnormal fecal loading. No obstructive features. Incidental pelvic phleboliths present and there are clips at the gallbladder fossa. IMPRESSION: No acute appearing abnormality. Dictated by: Dictated on workstation # [id number]
[2022-12-13] MEDS ORDERED: KETOROLAC INJ 30 MG/ML VIAL IVP ONE (11:30)
[2022-12-13] MEDS ORDERED: PANT40TA2 PO (12:54)
[2022-12-13 12:59] VITALS: BP 132/72
== END 2022-12-13 13:08 | disposition home or self-care (01) ==
LOC: EDUNIT# 09:25 → ER 09:27
DX: R10.9 Unspecified abdominal pain (principal); E11.9 Type 2 diabetes mellitus without complications; Z87.19 Personal history of other diseases of the digestive system
CPT/HCPCS: 36415; 74019; 80053; 81000; 83690; 85025; 86141; 96374